=== PATIENT | female | born 1990 ===

== ENCOUNTER 2017-02-22 15:08 | Inpatient (IN) | payer OTHER ==
[2017-02-22] MEDS ORDERED: Sodium Chloride 0.9% 1,000 ML IV ONE (15:28)
[2017-02-22 15:47] LABS: BASO # 0.1 K/uL (0.0-0.2); EOS % 0.2 % (0.0-4.0); HEMATOCRIT 37.6 % (34.0-47.0); LYMPH # 1.2 K/uL (1.0-4.3); LYMPH % 9.4 % (20.0-40.0); MEAN CELL VOLUME 84.6 fL (81.0-99.0); MEAN CORPUSCULAR HEMOGLOBIN 27.8 pg (27.0-31.0); MEAN CORPUSCULAR HGB CONC 32.8 g/dL (33.0-37.0); MEAN PLATELET VOLUME 8.5 fL (7.2-11.7); MONO # 0.7 K/uL (0.0-0.8); PLATELET COUNT 274 K/uL (130-400); RED CELL DISTRIBUTION WIDTH 14.1 % (11.5-14.5); WHITE BLOOD COUNT 12.4 K/uL (4.8-10.8)
[2017-02-22 15:47] LABS: RBC URINE 41 /hpf (0-3); URINE BILIRUBIN NEGATIVE (NEGATIVE); URINE BLOOD 3+ (NEGATIVE); URINE COLOR Yellow (YELLOW); URINE GLUCOSE (UA) NORMAL (Normal); URINE KETONE NEGATIVE (NEGATIVE); URINE LEUKOCYTE ESTERASE 1+ Leu/uL (Negative); URINE PROTEIN 1+ mg/dL (NEGATIVE); URINE UROBILINOGEN NORMAL mg/dL (0.2-1.0); WBC URINE 32 /hpf (0-5)
[2017-02-22 15:54] LABS: CHLORIDE 97 mmol/L (98-107)
[2017-02-22 15:55] LABS: POTASSIUM 3.9 mmol/L (3.6-5.2); SODIUM 135 mmol/L (132-148)
[2017-02-22 15:57] LABS: ALB/GLOB RATIO 1.4 (1.0-2.1); ALKALINE PHOSPHATASE 72 U/L (38-126); ALT/SGPT 33 U/L (9-52); AST/SGOT 13 U/L (14-36); BILIRUBIN,TOTAL 0.7 mg/dL (0.2-1.3); BLOOD UREA NITROGEN 14 mg/dL (7-17); CALCIUM 8.6 mg/dl (8.6-10.4); CARBON DIOXIDE 27 mmol/L (22-30); GLUCOSE,RANDOM 87 mg/dL (65-105); TOTAL PROTEIN 7.9 g/dL (6.3-8.3)
[2017-02-22] MEDS ORDERED: Piperacillin/Tazobact 3.375 gm 100 ML IVPB STA (15:57)
[2017-02-22 16:04] LABS: GFR AFRICAN-AMERICAN > 60
[2017-02-22] MEDS ORDERED: Piperacillin/Tazobact 3.375 gm 100 ML IVPB ONE (16:05)
--- NOTE | 2017-02-22 16:15 | RAD ---
PROCEDURE: Radiographs of the chest and abdomen (obstructive series) HISTORY: Abdominal pain COMPARISON: No prior. TECHNIQUE: AP radiograph of the chest, with upright and supine radiographs of the abdomen. FINDINGS: CHEST: Lungs: The lungs are clear. Cardiovascular: Normal size heart. No pulmonary vascular congestion. Pleura: No pleural fluid. No pneumothorax. Other findings: None. ABDOMEN AND PELVIS: Bowel: There is large amount of stool in the colon. No differential air-fluid levels or bowel dilatation. No evidence of mechanical obstruction. Free air: None. Bones: Unremarkable. Other findings: None. IMPRESSION: Constipation. No evidence of mechanical bowel obstruction. Clear lungs.
[2017-02-22 16:43] LABS: NEUTROPHIL 93 % (50-75); TOTAL CELLS COUNTED 100
[2017-02-22] MEDS ORDERED: Iodixanol 320 MG/ML 200 ML BOTTLE IV ONE (17:12)
--- NOTE | 2017-02-22 18:38 | CT ---
EXAM: CT Abdomen and Pelvis With Intravenous Contrast EXAM DATE/TIME: Exam ordered 02/22/2017 3:56 PM CLINICAL HISTORY: 26 years old, female; Pain; Abdominal pain; Additional info: Lt side abdomen pain TECHNIQUE: Axial computed tomography images of the abdomen and pelvis with intravenous contrast. All CT scans at this facility use one or more dose reduction techniques, viz.: automated exposure control; ma/kV adjustment per patient size (including targeted exams where dose is matched to indication; i.e. head); or iterative reconstruction technique. Coronal and sagittal reformatted images were created and reviewed. CONTRAST: 100 mL of VISI administered intravenously. COMPARISON: No relevant prior studies available. FINDINGS: Lower thorax: No acute findings. ABDOMEN: Liver: Unremarkable. No mass. Gallbladder and bile ducts: Unremarkable. No calcified stones. No ductal dilation. Pancreas: Unremarkable. No mass. No ductal dilation. Spleen: Unremarkable. No splenomegaly. Adrenals: Unremarkable. No mass. Kidneys and ureters: Unremarkable. No solid mass. No hydronephrosis. Stomach and bowel: There is inflammation noted within the pericolonic fat surrounding the colon at the junction of the descending colon and sigmoid colon. No obstruction. No mucosal thickening. Appendix: No findings to suggest acute appendicitis. PELVIS: Bladder: Unremarkable. No mass. Reproductive: The left ovary measures 3.3 x 1.6 by 2.1 cm . The right ovary measures 2.7 x 3.8 by 3 cm.The left ovary is contiguous with the sigmoid colon in the area of pericolonic inflammation. . ABDOMEN and PELVIS: Intraperitoneal space: Unremarkable. No free air. No significant fluid collection. Bones/joints: No acute fracture. No dislocation. Soft tissues: Unremarkable. Vasculature: Mildly prominent margaret-colonic and perienteric vessels are noted. No abdominal aortic aneurysm. Lymph nodes: There are scattered mesenteric lymph nodes. . There are scattered retroperitoneal lymph nodes noted. All have a short axis diameter less than a centimeter. Lymph nodes are also noted in the pelvis along the external iliac chain again with a short axis diameter of less than a centimeter. IMPRESSION: 1. Inflammatory stranding noted within the pericolonic fat anterior to the junction of the descending colon with the sigmoid colon. Prominent perienteric vessels. The findings suggest the possibility of inflammatory bowel disease. There is no evidence of focal fat necrosis/epiploic appendigitis. The adjacent ovary appears normal in configuration and size. Images were attached to this report and are available at [email or web address]
[2017-02-22] MEDS ORDERED: metroNIDAZOLE IV 500 mg/100 ml 500 MG/100 ML BAG IV STA (19:00)
[2017-02-22] MEDS ORDERED: metroNIDAZOLE IV 500 mg/100 ml 500 MG/100 ML BAG ONE (19:13)
--- NOTE | 2017-02-22 19:43 | C.PDOC ---
History Of Present Illness 26 year old female presents to the ED for evaluation of left lower quadrant abdominal pain which began around 2 days ago. Patient describes her symptoms as colicky, dull, aching, and boring in nature. Patient notes that she has been experiencing constipation intermittently since childhood. Patient denies fever, chills, nausea, vomiting, diarrhea, vaginal discharge, or history of inflammatory bowel disease at this time. Time Seen by Provider: 02/22/17 15:21 Chief Complaint (Nursing): Abdominal Pain History Per: Patient History/Exam Limitations: no limitations Onset/Duration Of Symptoms: Days (2) Current Symptoms Are (Timing): Still Present Location Of Pain/Discomfort: LLQ Radiation Of Pain To:: None Quality Of Discomfort: Dull, Aching, "Pain" Associated Symptoms: denies: Fever, Chills, Nausea, Vomiting, Diarrhea Additional History Per: Patient Abnormal Vaginal Bleeding: No Past Medical History Reviewed: Historical Data, Nursing Documentation, Vital Signs Vital Signs: Last Vital Signs Temp 100.1 F H 02/22/17 20:36 Pulse 95 H 02/22/17 20:36 Resp 18 02/22/17 20:36 BP 117/73 02/22/17 20:36 Pulse Ox 99 02/22/17 22:49 - Medical History PMH: No Chronic Diseases Surgical History: No Surg Hx Family History: States: Unknown Family Hx - Social History Hx Alcohol Use: No Hx Substance Use: No Review Of Systems Constitutional: Negative for: Fever, Chills Gastrointestinal: Positive for: Abdominal Pain (left lower quadrant ). Negative for: Nausea, Vomiting, Diarrhea Physical Exam - Physical Exam Appears: Non-toxic, No Acute Distress Skin: Normal Color, Warm, Dry Head: Atraumatic, Normacephalic Eye(s): bilateral: Normal Inspection Oral Mucosa: Moist Neck: Supple Chest: Symmetrical, No Deformity, No Tenderness Cardiovascular: Rhythm Regular, No Murmur Respiratory: Normal Breath Sounds, No Rales, No Rhonchi, No Wheezing Gastrointestinal/Abdominal: Soft, Tenderness (left lower quadrant ), No Guarding , No Rebound Extremity: Normal ROM, Capillary Refill (less than 2 seconds ) Neurological/Psych: Oriented x3, Normal Speech, Normal Cognition Gait: Steady ED Course And Treatment - Laboratory Results Result Diagrams: 02/22/17 15:43 02/22/17 15:43 Urine POC: Negative O2 Sat by Pulse Oximetry: 99 (on RA) Pulse Ox Interpretation: Normal - Radiology CXR: Interpreted by Me CXR Interpretation: Yes: No Acute Disease - Other Rad abd x 2 X-Ray: Interpreted by Me (+FOS) Progress Note: Bloodwork, UA, CT A/P, and Obstructive Series abdomen XR ordered and reviewed. Tylenol PO ,Toradol IVP, Zosyn IVP, and Flagyl IV administered. Reevaluation Time: 19:43 Reassessment Condition: Improved - Physician Consult Information Outcome Of Conversation: 1899:d/w Surg Praneeth, pending eval. 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 diverticulitis h/o constipation but not diarrhea ? underlying UC/Crohn's Colonoscopy when s/s resolved. Disposition Doctor Will See Patient In The: Hospital Counseled Patient/Family Regarding: Studies Performed, Diagnosis - Disposition Disposition: HOSPITALIZED Disposition Time: 19:45 Condition: GOOD - Clinical Impression Clinical Impression: Abdominal pain - Scribe Statement The provider has reviewed the documentation as recorded by the Scribe (Chloe Donald) Provider Attestation: All medical record entries made by the Scribe were at my direction and personally dictated by me. I have reviewed the chart and agree that the record accurately reflects my personal performance of the history, physical exam, medical decision making, and the department course for this patient. I have also personally directed, reviewed, and agree with the discharge instructions and disposition.
--- NOTE | 2017-02-22 19:51 | CP.PCM.HP ---
<Bassem Pandey - Last Filed: 02/23/17 06:05> History of Present Illness - History of Present Illness History of Present Illness: CC: "The left side of my belly hurts" HPI: Patient is a 26 year old Hispan[place] female, with no PMHx, who presents to [facility] ED for left sided abdominal pain. Patient reports symptoms began yesterday morning, and have gradually worsened ever since. She woke up this AM with 10/10 pain and decided to come to the ED when it did not go away. She describes the pain as a constant "burning sensation with sharp stabs" in her LLQ that occasionally radiates into her RLQ. On the severity scale she rates the pain yesterday as 4/10, at worst today 10/10, but now after pain medication in ED . She denies episodes of N/V/D but admits constipation intermittently since she was a child. She states she has had normal appetite the last few days, except this morning when she tried eating egg sandwich, but it made abdominal pain worse and has not eaten since. She normally moves her bowel "every morning " sometimes twice per day. Her last bowel movement was Thursday, and she denies seeing blood on toilet paper, within the stool, or in the bowl. She denies ever having pain occurrence like this before. Patient admits to "partying" last night : She admits drinking heavily - last use yesterday "at least a pint of vodka, shots of fireball whiskey, and unknown amount of henessey," as well as using marijuana "to control the pain." FDLMP: 02/15/17. Patient admits she had normal 5 day period, that was not heavier than normal, that went away on Thursday, however she started lightly bleeding again yesterday. She denies dysuria, urinary frequency, vaginal discharge, or new sexual partners. She further denies fever, chills, nausea, vomiting, diarrhea, chest pain, palpitation, or headache. PMHx: 2 prior pregnancies ending in miscarriage (2009, 2011) PSHx: denies Fam Hx: Mother: benign brain tumor, Dad: unknown SHx: admits occasional recreational alcohol use - last use yesterday "at least a pint of vodka, shots of fireball whiskey, and unknown amount of henessey," admits occasional marijuana use "2 joints yesterday for pain," she denies other illicit drugs; denies tobacco usage; lives in [place] with mother; works at [employer]. Meds: none Allergies: None PMD: None Present on Admission - Present on Admission Any Indicators Present on Admission: No Review of Systems - Constitutional Constitutional: Chills, Fever. absent: Headache - EENT Eyes: absent: Change in Vision Ears: absent: Decreased Hearing - Cardiovascular Cardiovascular: absent: Chest Pain, Dyspnea - Respiratory Respiratory: absent: Dyspnea, Dyspnea on Exertion - Gastrointestinal Gastrointestinal: Abdominal Pain (left side radiating to right), Bloating, Cramping. absent: Nausea, Vomiting - Genitourinary Genitourinary: Dysuria, Urinary Frequency. absent: Urinary Hesitance - Menstruation Menstruation: Menses 1-7 Days - Musculoskeletal Musculoskeletal: absent: Numbness, Tingling - Integumentary Integumentary: absent: Dry Skin, Wounds - Neurological Neurological: absent: Tingling, Weakness - Endocrine Endocrine: absent: Fatigue Past Patient History - Past Social History Smoking Status: Never Smoked - PSYCHIATRIC Hx Substance Use: No Meds Allergies/Adverse Reactions: Allergies Allergy/AdvReac Type Severity Reaction Status Date / Time No Known Allergies Allergy Unverified 02/22/17 15:16 Physical Exam - Constitutional Appears: Non-toxic, No Acute Distress - Head Exam Head Exam: ATRAUMATIC, NORMOCEPHALIC - Eye Exam Eye Exam: EOMI, Normal appearance. absent: Scleral icterus - ENT Exam ENT Exam: Mucous Membranes Moist - Respiratory Exam Respiratory Exam: Clear to Auscultation Bilateral, NORMAL BREATHING PATTERN. absent: Rales, Rhonchi, Wheezes - Cardiovascular Exam Cardiovascular Exam: Tachycardia, +S1, +S2 - GI/Abdominal Exam GI & Abdominal Exam: Guarding (voluntary to LLQ), Normal Bowel Sounds, Soft, Tenderness (worst LLQ, tender suprapubic and RLQ as well). absent: Distended, Mass, Rebound Additional comments: Negative Rovsing/Negative Mcburney/Negative Psoas sign - Back Exam Back exam: absent: CVA tenderness (L), CVA tenderness (R) - Neurological Exam Neurological exam: Alert, Oriented x3 - Psychiatric Exam Psychiatric exam: Normal Affect, Normal Mood - Skin Skin Exam: Normal Color, Warm Results - Vital Signs Recent Vital Signs: Last Vital Signs Temp 102.1 F H 02/22/17 19:19 Pulse 106 H 02/22/17 19:19 Resp 22 02/22/17 19:19 BP 124/75 02/22/17 19:19 Pulse Ox 99 02/22/17 19:45 - Labs Result Diagrams: 02/22/17 15:43 02/22/17 15:43 Labs: Laboratory Results - last 24 hr 02/22/17 02/22/17 02/22/17 15:26 15:43 15:43 WBC 12.4 H RBC 4.44 Hgb 12.3 Hct 37.6 MCV 84.6 MCH 27.8 MCHC 32.8 L RDW 14.1 Plt Count 274 MPV 8.5 Neut % (Auto) 83.4 H Lymph % (Auto) 9.4 L [place] % (Auto) 6.0 Eos % (Auto) 0.2 Baso % (Auto) 1.0 Neut # 10.4 H Lymph # 1.2 [place] # 0.7 Eos # 0.0 Baso # 0.1 Neutrophils % (Manual) 93 H Band Neutrophils % 1 Lymphocytes % (Manual) 4 L Monocytes % (Manual) 2 Platelet Estimate Normal RBC Morphology Normal Sodium 135 Potassium 3.9 Chloride 97 L Carbon Dioxide 27 Anion Gap 15 BUN 14 Creatinine 0.6 L Est GFR ( Amer) > 60 Est GFR (Non-Af Amer) > 60 Random Glucose 87 Calcium 8.6 Total Bilirubin 0.7 AST 13 L ALT 33 Alkaline Phosphatase 72 Total Protein 7.9 Albumin 4.5 Globulin 3.3 Albumin/Globulin Ratio 1.4 Lipase 35 Urine Color Yellow Urine Clarity Hazy Urine pH 8.0 Ur Specific [place] 1.021 Urine Protein 1+ H Urine Glucose (UA) Normal Urine Ketones Negative Urine Blood 3+ H Urine Nitrate Negative Urine Bilirubin Negative Urine Urobilinogen Normal Ur Leukocyte Esterase 1+ H Urine WBC (Auto) 32 H Urine RBC (Auto) 41 H Ur Squamous Epith Cells 12 H Urine HCG, Qual Negative Assessment & Plan - Assessment and Plan (Free Text) Plan: Sepsis Criteria: WBC >12, HR: 106 Source: UTI vs Sigmoid inflammation/diverticulitis - no hypoperfusion, no organ failure - will observe for changes to clinical picture f/u procalcitonin to assess for possible sepsis progression Cipro 400mg IV Q12H Flagyl 500mg IV Q8H Toradol 30 mg IV Q6H for pain D5/NS @ 125cc/hr Diverticulitis/Sigmoid inflammation Admit to med/surg NPO diet Dr. Borjas, GI consult Dr. Fang, Gen surg consult WBC 12.4, Pt febrile CT A/P (02/22/17): Inflammatory stranding noted within pericolonic fat anterior to junction of descending colon with the sigmoid colon. Prominent perienteric vessels. Findings suggest possibility of IBD. No evidence of focal fat necrosis/ epiploic appendigitis. Adjacent ovary - normal in configuration and size. (see full report) Cipro 400mg IV Q12H Flagyl 500mg IV Q8H Toradol 30 mg IV Q6H for pain D5/NS @ 125cc/hr Leukocytosis WBC 12.4 - left shift, 1 band Criteria: WBC > 12, HR: 106 Source: UTI vs Sigmoid inflammation/diverticulitis Cipro 400mg IV Q12H Flagyl 500mg IV q8H - one dose of Zosyn given in ED UTI UA (02/22/17): LE 1+, Nitrate negative, WBC 32, beta HCG negative - not clean catch Sq Epith: 12 - repeat UA in AM Cipro 400mg IV Q12H Constipation Patient reports no BM for two days; long history of constipation Abd Xray (02/22/17): Constipation. No evidence of mechanical bowel obstruction. CT A/P (02/22/17): Inflammatory stranding noted within pericolonic fat anterior to junction of descending colon with the sigmoid colon. Prominent perienteric vessels. Findings suggest possibility of IBD. No evidence of focal fat necrosis/ epiploic appendigitis. Adjacent ovary - normal in configuration and size. Hematuria UA 3+ - patient admits 5 days period ended Thursday but now lightly bleeding again - will follow up UA Prophylaxis SCDs Hold heparin due to interaction with toradol; pt ambulates Protonix 40mg IV Daily Bassem Pandey PGY-[address] Agarwal <Cornelius Agarwal - Last Filed: 02/23/17 06:16> Results - Vital Signs Recent Vital Signs: Last Vital Signs Temp 98.1 F 02/22/17 23:10 Pulse 80 02/22/17 23:10 Resp 18 02/22/17 23:10 BP 103/63 02/22/17 23:10 Pulse Ox 98 02/22/17 23:10 - Labs Result Diagrams: 02/22/17 15:43 02/22/17 15:43 Labs: Laboratory Results - last 24 hr 02/22/17 02/22/17 02/22/17 15:26 15:43 15:43 WBC 12.4 H RBC 4.44 Hgb 12.3 Hct 37.6 MCV 84.6 MCH 27.8 MCHC 32.8 L RDW 14.1 Plt Count 274 MPV 8.5 Neut % (Auto) 83.4 H Lymph % (Auto) 9.4 L [place] % (Auto) 6.0 Eos % (Auto) 0.2 Baso % (Auto) 1.0 Neut # 10.4 H Lymph # 1.2 [place] # 0.7 Eos # 0.0 Baso # 0.1 Neutrophils % (Manual) 93 H Band Neutrophils % 1 Lymphocytes % (Manual) 4 L Monocytes % (Manual) 2 Platelet Estimate Normal RBC Morphology Normal Sodium 135 Potassium 3.9 Chloride 97 L Carbon Dioxide 27 Anion Gap 15 BUN 14 Creatinine 0.6 L Est GFR ( Amer) > 60 Est GFR (Non-Af Amer) > 60 Random Glucose 87 Calcium 8.6 Total Bilirubin 0.7 AST 13 L ALT 33 Alkaline Phosphatase 72 Total Protein 7.9 Albumin 4.5 Globulin 3.3 Albumin/Globulin Ratio 1.4 Lipase 35 Procalcitonin Urine Color Yellow Urine Clarity Hazy Urine pH 8.0 Ur Specific [place] 1.021 Urine Protein 1+ H Urine Glucose (UA) Normal Urine Ketones Negative Urine Blood 3+ H Urine Nitrate Negative Urine Bilirubin Negative Urine Urobilinogen Normal Ur Leukocyte Esterase 1+ H Urine WBC (Auto) 32 H Urine RBC (Auto) 41 H Ur Squamous Epith Cells 12 H Urine HCG, Qual Negative 02/22/17 22:08 WBC RBC Hgb Hct MCV MCH MCHC RDW Plt Count MPV Neut % (Auto) Lymph % (Auto) [place] % (Auto) Eos % (Auto) Baso % (Auto) Neut # Lymph # [place] # Eos # Baso # Neutrophils % (Manual) Band Neutrophils % Lymphocytes % (Manual) Monocytes % (Manual) Platelet Estimate RBC Morphology Sodium Potassium Chloride Carbon Dioxide Anion Gap BUN Creatinine Est GFR ( Amer) Est GFR (Non-Af Amer) Random Glucose Calcium Total Bilirubin AST ALT Alkaline Phosphatase Total Protein Albumin Globulin Albumin/Globulin Ratio Lipase Procalcitonin 0.05 L Urine Color Urine Clarity Urine pH Ur Specific [place] Urine Protein Urine Glucose (UA) Urine Ketones Urine Blood Urine Nitrate Urine Bilirubin Urine Urobilinogen Ur Leukocyte Esterase Urine WBC (Auto) Urine RBC (Auto) Ur Squamous Epith Cells Urine HCG, Qual Assessment & Plan - Date & Time Date: 02/23/17 (I have seen and examined the patient. I agree with the findings and plan of care as documented by Dr. Pandey. Patient with diverticulitis. Also with positive SIRS criteria. Monitor for hemodynamic instability. Check Procalcitonin level. Check blood and urine cultures. Consult to surgery and GI. Given Zosyn and Flagyl in ED. Change to Cipro and Flagyl. Will cover patient's UTI. Repeat UA and urine culture. Monitor for acute changes.) Time: 06:14 Attending/Attestation - Attestation I have personally seen and examined this patient.: Yes I have fully participated in the care of the patient.: Yes I have reviewed all pertinent clinical information: Yes
[2017-02-22] MEDS ORDERED: Dextrose 5%/0.9% NS 1,000 ML IV SCH (21:30)
[2017-02-22] MEDS: Dextrose 5%/0.9% NS 1,000 ML IV SCH (22:00)
[2017-02-22] MEDS: Ciprofloxacin 400mg/200ml D5W 400 MG/200 ML BAG IVPB SCH (22:24)
--- NOTE | 2017-02-23 01:42 | CP.PCM.CON ---
<Hernesto Tirado - Last Filed: 02/23/17 01:21> History of Present Illness - History of Present Illness History of Present Illness: General Surgery Consult Re: sigmoid inflammation, possible diverticulitis HPI: 26F presented to ED for LLQ pain. Pain started thursday AM and is progressively worsening. Thursday had 10/10 pain in AM and decided to come to the ED. Pain feels like "burning sensation with sharp stabs" in her LLQ that spreads to her suprapubic area. Denies N/V, prior F/C, SOB, dysuria, hematuria, diarrhea, constipation. Reports decreased appetite as food today made abd pain worse. Last BM was Thursday and normal. She has never had pain like this before. LMP was 02/15/17 and was her normal 5 day period. Denies family or personal history of IBD. PMH: Miscarriage x 2 PSH: Denies SH: + EtOH and THC use. No Tobacco All: NKDA Meds: Denies Review of Systems - Review of Systems All systems: reviewed and no additional remarkable complaints except (as per HPI ) Past Patient History - Past Medical History & Family History Past Medical History?: Yes - Past Social History Smoking Status: Never Smoked - MUSCULOSKELETAL/RHEUMATOLOGICAL Hx Falls: No - PSYCHIATRIC Hx Substance Use: No - ANESTHESIA Hx Anesthesia: Yes Hx Anesthesia Reactions: No Meds Allergies/Adverse Reactions: Allergies Allergy/AdvReac Type Severity Reaction Status Date / Time No Known Allergies Allergy Unverified 02/22/17 15:16 - Medications Medications: Current Medications Ciprofloxacin (Cipro 400mg/200ml Dsw) 400 mg in 200 mls @ 133 mls/hr IVPB Q12H [facility] Last Admin: 02/22/17 22:24 Dose: 133 mls/hr Metronidazole (Flagyl) 500 mg in 100 mls @ 100 mls/hr IVPB Q8 [facility] Dextrose/Sodium Chloride (Dextrose 5%/0.9% Ns 1000 Ml) 1,000 mls @ 125 mls/hr IV .Q8H [facility] [place] Last Admin: 02/22/17 22:00 Dose: 125 mls/hr Ketorolac Tromethamine (Toradol) 30 mg IVP Q6 PRN PRN Reason: Pain, moderate (4-7) Pantoprazole Sodium (Protonix Inj) 40 mg IVP DAILY [facility] Pneumococcal Polyvalent Vaccine (Pneumovax 23 Vaccine) 0.5 ml IM .ONCE ONE Stop: 02/24/17 10:01 Physical Exam - Constitutional Appears: Non-toxic, No Acute Distress - Head Exam Head Exam: ATRAUMATIC, NORMOCEPHALIC - Eye Exam Eye Exam: EOMI. absent: Scleral icterus - ENT Exam ENT Exam: Mucous Membranes Dry Additional comments: trachea midline - Respiratory Exam Respiratory Exam: NORMAL BREATHING PATTERN. absent: Respiratory Distress - Cardiovascular Exam Cardiovascular Exam: RRR, +S1, +S2 - GI/Abdominal Exam GI & Abdominal Exam: Guarding, Soft, Tenderness (in LLQ and suprapubic area). absent: Distended, Firm, Rigid - Rectal Exam Rectal Exam: Deferred - Extremities Exam Extremities exam: Positive for: normal capillary refill, pedal pulses present. Negative for: pedal edema - Back Exam Back exam: absent: CVA tenderness (L), CVA tenderness (R) - Neurological Exam Neurological exam: Alert, Oriented x3 - Psychiatric Exam Psychiatric exam: Normal Affect, Normal Mood - Skin Skin Exam: Dry, Warm Results - Vital Signs Recent Vital Signs: Last Vital Signs Temp 98.1 F 02/22/17 23:10 Pulse 80 02/22/17 23:10 Resp 18 02/22/17 23:10 BP 103/63 02/22/17 23:10 Pulse Ox 98 02/22/17 23:10 - Labs Result Diagrams: 02/22/17 15:43 02/22/17 15:43 Labs: Laboratory Results - last 24 hr 02/22/17 02/22/17 02/22/17 15:26 15:43 15:43 WBC 12.4 H RBC 4.44 Hgb 12.3 Hct 37.6 MCV 84.6 MCH 27.8 MCHC 32.8 L RDW 14.1 Plt Count 274 MPV 8.5 Neut % (Auto) 83.4 H Lymph % (Auto) 9.4 L [place] % (Auto) 6.0 Eos % (Auto) 0.2 Baso % (Auto) 1.0 Neut # 10.4 H Lymph # 1.2 [place] # 0.7 Eos # 0.0 Baso # 0.1 Neutrophils % (Manual) 93 H Band Neutrophils % 1 Lymphocytes % (Manual) 4 L Monocytes % (Manual) 2 Platelet Estimate Normal RBC Morphology Normal Sodium 135 Potassium 3.9 Chloride 97 L Carbon Dioxide 27 Anion Gap 15 BUN 14 Creatinine 0.6 L Est GFR ( Amer) > 60 Est GFR (Non-Af Amer) > 60 Random Glucose 87 Calcium 8.6 Total Bilirubin 0.7 AST 13 L ALT 33 Alkaline Phosphatase 72 Total Protein 7.9 Albumin 4.5 Globulin 3.3 Albumin/Globulin Ratio 1.4 Lipase 35 Procalcitonin Urine Color Yellow Urine Clarity Hazy Urine pH 8.0 Ur Specific [place] 1.021 Urine Protein 1+ H Urine Glucose (UA) Normal Urine Ketones Negative Urine Blood 3+ H Urine Nitrate Negative Urine Bilirubin Negative Urine Urobilinogen Normal Ur Leukocyte Esterase 1+ H Urine WBC (Auto) 32 H Urine RBC (Auto) 41 H Ur Squamous Epith Cells 12 H Urine HCG, Qual Negative 02/22/17 22:08 WBC RBC Hgb Hct MCV MCH MCHC RDW Plt Count MPV Neut % (Auto) Lymph % (Auto) [place] % (Auto) Eos % (Auto) Baso % (Auto) Neut # Lymph # [place] # Eos # Baso # Neutrophils % (Manual) Band Neutrophils % Lymphocytes % (Manual) Monocytes % (Manual) Platelet Estimate RBC Morphology Sodium Potassium Chloride Carbon Dioxide Anion Gap BUN Creatinine Est GFR ( Amer) Est GFR (Non-Af Amer) Random Glucose Calcium Total Bilirubin AST ALT Alkaline Phosphatase Total Protein Albumin Globulin Albumin/Globulin Ratio Lipase Procalcitonin 0.05 L Urine Color Urine Clarity Urine pH Ur Specific [place] Urine Protein Urine Glucose (UA) Urine Ketones Urine Blood Urine Nitrate Urine Bilirubin Urine Urobilinogen Ur Leukocyte Esterase Urine WBC (Auto) Urine RBC (Auto) Ur Squamous Epith Cells Urine HCG, Qual - Imaging and Cardiology CT scan - abdomen Status: Image reviewed by me, Report reviewed by me Assessment & Plan - Assessment and Plan (Free Text) Assessment: 26F with colitis vs IBD vs possible diverticulitis Plan: NPO IVF Abx Pain control Monitor for BM/flatus Will D/W Dr. Leoncio Tirado PGY4 <Trae Fang - Last Filed: 02/25/17 19:36> Results - Vital Signs Recent Vital Signs: Last Vital Signs Temp 98.8 F 02/25/17 15:00 Pulse 80 02/25/17 15:00 Resp 20 02/25/17 15:00 BP 109/71 02/25/17 15:00 Pulse Ox 98 02/25/17 15:00 - Labs Result Diagrams: 02/25/17 07:49 02/25/17 07:49 Labs: Laboratory Results - last 24 hr 02/25/17 02/25/17 07:49 07:49 WBC 7.1 RBC 4.39 Hgb 12.4 Hct 37.8 MCV 86.2 MCH 28.2 MCHC 32.8 L RDW 14.0 Plt Count 282 MPV 8.7 Neut % (Auto) 73.6 Lymph % (Auto) 17.3 L [place] % (Auto) 6.3 Eos % (Auto) 2.3 Baso % (Auto) 0.5 Neut # 5.2 Lymph # 1.2 [place] # 0.4 Eos # 0.2 Baso # 0.0 Sodium 138 Potassium 4.2 Chloride 101 Carbon Dioxide 27 Anion Gap 14 BUN 12 Creatinine 0.6 L Est GFR ( Amer) > 60 Est GFR (Non-Af Amer) > 60 Random Glucose 83 Calcium 8.5 L Total Bilirubin 0.5 AST 17 ALT 28 Alkaline Phosphatase 62 Total Protein 7.3 Albumin 4.0 Globulin 3.2 Albumin/Globulin Ratio 1.2 Attending/Attestation - Attestation I have personally seen and examined this patient.: Yes I have fully participated in the care of the patient.: Yes I have reviewed all pertinent clinical information: Yes Notes (Text): Pt was seen and examined at bedside Agree with above note and assessment Pt with Enteritis and possible colitis LLQ tenderness Labs and radiology reviewed NPO, IVG C.w IV antibitics Plan d.w pt in detail. Risk and benefit explained in detail.
[2017-02-23] MEDS: metroNIDAZOLE IV 500 mg/100 ml 500 MG/100 ML BAG IVPB SCH ×3 (05:14→21:27)
[2017-02-23] MEDS: Dextrose 5%/0.9% NS 1,000 ML IV SCH ×3 (05:26→21:29)
[2017-02-23 07:53] VITALS: RESP 20
[2017-02-23 08:03] LABS: BASO # 0.1 K/uL (0.0-0.2); BASO % 0.5 % (0.0-2.0); EOS # 0.1 K/uL (0.0-0.7); EOS % 0.5 % (0.0-4.0); HEMATOCRIT 33.7 % (34.0-47.0); LYMPH # 1.3 K/uL (1.0-4.3); LYMPH % 13.8 % (20.0-40.0); MEAN CELL VOLUME 85.6 fL (81.0-99.0); MEAN CORPUSCULAR HEMOGLOBIN 28.2 pg (27.0-31.0); MEAN CORPUSCULAR HGB CONC 32.9 g/dL (33.0-37.0); MEAN PLATELET VOLUME 9.1 fL (7.2-11.7); MONO # 0.6 K/uL (0.0-0.8); MONO % 6.3 % (0.0-10.0); RED CELL DISTRIBUTION WIDTH 13.8 % (11.5-14.5); WHITE BLOOD COUNT 9.3 K/uL (4.8-10.8)
[2017-02-23 08:18] LABS: CHLORIDE 101 mmol/L (98-107); POTASSIUM 3.6 mmol/L (3.6-5.2); SODIUM 134 mmol/L (132-148)
[2017-02-23 08:20] LABS: ALB/GLOB RATIO 1.3 (1.0-2.1); AST/SGOT 19 U/L (14-36); BILIRUBIN,TOTAL 1.1 mg/dL (0.2-1.3); CARBON DIOXIDE 25 mmol/L (22-30); GFR AFRICAN-AMERICAN > 60; TOTAL PROTEIN 6.3 g/dL (6.3-8.3)
[2017-02-23 08:21] LABS: ALKALINE PHOSPHATASE 59 U/L (38-126); ALT/SGPT 26 U/L (9-52); BLOOD UREA NITROGEN 10 mg/dL (7-17); CALCIUM 7.7 mg/dl (8.6-10.4); GLUCOSE,RANDOM 88 mg/dL (65-105); PHOSPHOROUS 2.5 mg/dL (2.5-4.5)
[2017-02-23 08:22] LABS: MAGNESIUM 1.7 mg/dL (1.6-2.3)
--- NOTE | 2017-02-23 09:29 | CP.PCM.CON ---
<Nanette Ramirez - Last Filed: 02/23/17 11:24> History of Present Illness - History of Present Illness History of Present Illness: Gastroenterology Fellow/PGY5 Consult Note 26 year old female with no prior medical history presenting with abdominal pain. Patient states she developed dull left lower abdomen pain on Thursday, pain scale 2-4/10. She notes progression to sharp LLQ pain with walking on Thursday leading to ER presentation, pain scale 10/10. She denies prior similar abdominal pain. Associated loss of appetite, fever, chills, and sweats. Denies nausea, vomiting, hematemesis, diarrhea, constipation, melena, hematochezia, unintentional weight loss, joint pain, back pain, eye redness/pain, mouth ulcers , skin sores, kidney stones, or fatigue. Notes she ate normally on Thursday prior to afternoon pain onset. She admits to heavy social alcoholic intake Thursday with friends. Notes only unusual occurrence of recurrent menstruation at time of severe abdominal pain on Thursday after completion of menstrual cycle on /Thursday. Denies NSAID use. Notes usual daily 1-2 bowel movements without straining described as small pieces adding up to "normal amount". Admits to no fiber intake and averages two glasses of water daily. Diet mainly consists of junk food. No prior EGD or colonoscopy. Family- denies IBD, colitis, diverticulitis Social- weekend heavy alcohol use; rare marijuana use, denies tobacco use Surgery- none Review of Systems - Review of Systems Review of Systems: 12-point review of systems negative except for as above Past Patient History - Past Medical History & Family History Past Medical History?: Yes - Past Social History Smoking Status: Never Smoked - MUSCULOSKELETAL/RHEUMATOLOGICAL Hx Falls: No - PSYCHIATRIC Hx Substance Use: No - ANESTHESIA Hx Anesthesia: Yes Hx Anesthesia Reactions: No Meds Allergies/Adverse Reactions: Allergies Allergy/AdvReac Type Severity Reaction Status Date / Time No Known Allergies Allergy Unverified 02/22/17 15:16 - Medications Medications: Current Medications Ciprofloxacin (Cipro 400mg/200ml Dsw) 400 mg in 200 mls @ 133 mls/hr IVPB Q12H [facility] Last Admin: 02/22/17 22:24 Dose: 133 mls/hr Metronidazole (Flagyl) 500 mg in 100 mls @ 100 mls/hr IVPB Q8 [facility] Last Admin: 02/23/17 05:14 Dose: 100 mls/hr Dextrose/Sodium Chloride (Dextrose 5%/0.9% Ns 1000 Ml) 1,000 mls @ 125 mls/hr IV .Q8H [facility] Last Admin: 02/23/17 05:26 Dose: Not Given Ketorolac Tromethamine (Toradol) 30 mg IVP Q6 PRN PRN Reason: Pain, moderate (4-7) Pantoprazole Sodium (Protonix Inj) 40 mg IVP DAILY [facility] Pneumococcal Polyvalent Vaccine (Pneumovax 23 Vaccine) 0.5 ml IM .ONCE ONE Stop: 02/24/17 10:01 Physical Exam - Constitutional Appears: Non-toxic, No Acute Distress - Head Exam Head Exam: ATRAUMATIC, NORMOCEPHALIC - Eye Exam Eye Exam: EOMI, PERRL. absent: Scleral icterus Pupil Exam: PERRL. absent: Miosis, Mydriatic - ENT Exam ENT Exam: Mucous Membranes Moist, Normal Oropharynx - Neck Exam Neck exam: Positive for: Full Rom, Normal Inspection - Respiratory Exam Respiratory Exam: Clear to Auscultation Bilateral. absent: Rales, Rhonchi, Wheezes - Cardiovascular Exam Cardiovascular Exam: RRR, +S1, +S2. absent: Gallop, Rubs - GI/Abdominal Exam GI & Abdominal Exam: Normal Bowel Sounds, Soft, Tenderness. absent: Distended, Firm, Guarding, Organomegaly, Rebound, Rigid Additional comments: severe LLQ tenderness to palpation - Rectal Exam Rectal Exam: Hemorrhoids. absent: Black Stool, Bloody Stool, Fecal Impaction Additional comments: moderate amount of small, hard mobile pieces of stool in rectal vault - Extremities Exam Extremities exam: Positive for: normal inspection. Negative for: pedal edema - Neurological Exam Neurological exam: Alert - Psychiatric Exam Psychiatric exam: Normal Affect, Normal Mood - Skin Skin Exam: Dry, Intact, Normal Color, Warm Results - Vital Signs Recent Vital Signs: Last Vital Signs Temp 98 F 02/23/17 07:52 Pulse 78 02/23/17 07:52 Resp 20 02/23/17 07:52 BP 100/65 02/23/17 07:52 Pulse Ox 98 02/23/17 07:52 - Labs Result Diagrams: 02/23/17 07:50 02/23/17 07:50 Labs: Laboratory Results - last 24 hr 02/22/17 02/22/17 02/22/17 15:26 15:43 15:43 WBC 12.4 H RBC 4.44 Hgb 12.3 Hct 37.6 MCV 84.6 MCH 27.8 MCHC 32.8 L RDW 14.1 Plt Count 274 MPV 8.5 Neut % (Auto) 83.4 H Lymph % (Auto) 9.4 L [place] % (Auto) 6.0 Eos % (Auto) 0.2 Baso % (Auto) 1.0 Neut # 10.4 H Lymph # 1.2 Dale # 0.7 Eos # 0.0 Baso # 0.1 Neutrophils % (Manual) 93 H Band Neutrophils % 1 Lymphocytes % (Manual) 4 L Monocytes % (Manual) 2 Platelet Estimate Normal RBC Morphology Normal Sodium 135 Potassium 3.9 Chloride 97 L Carbon Dioxide 27 Anion Gap 15 BUN 14 Creatinine 0.6 L Est GFR ( Amer) > 60 Est GFR (Non-Af Amer) > 60 Random Glucose 87 Calcium 8.6 Phosphorus Magnesium Total Bilirubin 0.7 AST 13 L ALT 33 Alkaline Phosphatase 72 Total Protein 7.9 Albumin 4.5 Globulin 3.3 Albumin/Globulin Ratio 1.4 Lipase 35 Procalcitonin Urine Color Yellow Urine Clarity Hazy Urine pH 8.0 Ur Specific [place] 1.021 Urine Protein 1+ H Urine Glucose (UA) Normal Urine Ketones Negative Urine Blood 3+ H Urine Nitrate Negative Urine Bilirubin Negative Urine Urobilinogen Normal Ur Leukocyte Esterase 1+ H Urine WBC (Auto) 32 H Urine RBC (Auto) 41 H Ur Squamous Epith Cells 12 H Urine HCG, Qual Negative 02/22/17 02/23/17 02/23/17 22:08 07:50 07:50 WBC 9.3 RBC 3.93 Hgb 11.1 Hct 33.7 L MCV 85.6 MCH 28.2 MCHC 32.9 L RDW 13.8 Plt Count 228 MPV 9.1 Neut % (Auto) 78.9 H Lymph % (Auto) 13.8 L [place] % (Auto) 6.3 Eos % (Auto) 0.5 Baso % (Auto) 0.5 Neut # 7.3 H Lymph # 1.3 Dale # 0.6 Eos # 0.1 Baso # 0.1 Neutrophils % (Manual) Band Neutrophils % Lymphocytes % (Manual) Monocytes % (Manual) Platelet Estimate RBC Morphology Sodium 134 Potassium 3.6 Chloride 101 Carbon Dioxide 25 Anion Gap 11 BUN 10 Creatinine 0.5 L Est GFR ( Amer) > 60 Est GFR (Non-Af Amer) > 60 Random Glucose 88 Calcium 7.7 L Phosphorus 2.5 Magnesium 1.7 Total Bilirubin 1.1 AST 19 ALT 26 Alkaline Phosphatase 59 Total Protein 6.3 Albumin 3.5 D Globulin 2.8 Albumin/Globulin Ratio 1.3 Lipase Procalcitonin 0.05 L Urine Color Urine Clarity Urine pH Ur Specific [place] Urine Protein Urine Glucose (UA) Urine Ketones Urine Blood Urine Nitrate Urine Bilirubin Urine Urobilinogen Ur Leukocyte Esterase Urine WBC (Auto) Urine RBC (Auto) Ur Squamous Epith Cells Urine HCG, Qual Assessment & Plan - Assessment and Plan (Free Text) Assessment: 26 year old female with no prior medical history presenting with left lower abdominal pain. Active treatment of descending/sigmoid colitis, UTI, and constipation. No prior EGD or colonoscopy. Plan: >possible stercoral colitis >DDx: IBD, diverticulitis >on Cipro/Flagyl >rectal exam- moderate small, hard mobile stool in rectal vault >significant fecal retention >ordered fleet enema and Dulcolax PO x 1 >Miralax BID >clear liquid diet >will require elective colonoscopy to evaluate for underlying mas lesion or other cause for colitis >if no clinical improvement inpatient, will consider inpatient endoscopic evaluation >will follow clinical course <Franco ANNA,[facility] - Last Filed: 02/23/17 14:46> Meds - Medications Medications: Current Medications Ciprofloxacin (Cipro 400mg/200ml Dsw) 400 mg in 200 mls @ 133 mls/hr IVPB Q12H [facility] Last Admin: 02/23/17 10:34 Dose: 133 mls/hr Metronidazole (Flagyl) 500 mg in 100 mls @ 100 mls/hr IVPB Q8 [facility] Last Admin: 02/23/17 13:44 Dose: 100 mls/hr Dextrose/Sodium Chloride (Dextrose 5%/0.9% Ns 1000 Ml) 1,000 mls @ 125 mls/hr IV .Q8H [facility] Last Admin: 02/23/17 13:46 Dose: 125 mls/hr Ketorolac Tromethamine (Toradol) 30 mg IVP Q6 PRN PRN Reason: Pain, moderate (4-7) Pantoprazole Sodium (Protonix Inj) 40 mg IVP DAILY [facility] Last Admin: 02/23/17 10:28 Dose: 40 mg Pneumococcal Polyvalent Vaccine (Pneumovax 23 Vaccine) 0.5 ml IM .ONCE ONE Stop: 02/24/17 10:01 Polyethylene Glycol (Miralax) 17 gm PO BID [facility] Last Admin: 02/23/17 12:13 Dose: 17 gm Results - Vital Signs Recent Vital Signs: Last Vital Signs Temp 98 F 02/23/17 07:52 Pulse 78 02/23/17 07:52 Resp 20 02/23/17 07:52 BP 100/65 02/23/17 07:52 Pulse Ox 98 02/23/17 07:52 - Labs Result Diagrams: 02/23/17 07:50 02/23/17 07:50 Labs: Laboratory Results - last 24 hr 02/22/17 02/22/17 02/22/17 15:26 15:43 15:43 WBC 12.4 H RBC 4.44 Hgb 12.3 Hct 37.6 MCV 84.6 MCH 27.8 MCHC 32.8 L RDW 14.1 Plt Count 274 MPV 8.5 Neut % (Auto) 83.4 H Lymph % (Auto) 9.4 L [place] % (Auto) 6.0 Eos % (Auto) 0.2 Baso % (Auto) 1.0 Neut # 10.4 H Lymph # 1.2 Dale # 0.7 Eos # 0.0 Baso # 0.1 Neutrophils % (Manual) 93 H Band Neutrophils % 1 Lymphocytes % (Manual) 4 L Monocytes % (Manual) 2 Platelet Estimate Normal RBC Morphology Normal PT INR Sodium 135 Potassium 3.9 Chloride 97 L Carbon Dioxide 27 Anion Gap 15 BUN 14 Creatinine 0.6 L Est GFR ( Amer) > 60 Est GFR (Non-Af Amer) > 60 Random Glucose 87 Calcium 8.6 Phosphorus Magnesium Total Bilirubin 0.7 AST 13 L ALT 33 Alkaline Phosphatase 72 Total Protein 7.9 Albumin 4.5 Globulin 3.3 Albumin/Globulin Ratio 1.4 Lipase 35 Procalcitonin Urine Color Yellow Urine Clarity Hazy Urine pH 8.0 Ur Specific [place] 1.021 Urine Protein 1+ H Urine Glucose (UA) Normal Urine Ketones Negative Urine Blood 3+ H Urine Nitrate Negative Urine Bilirubin Negative Urine Urobilinogen Normal Ur Leukocyte Esterase 1+ H Urine WBC (Auto) 32 H Urine RBC (Auto) 41 H Ur Squamous Epith Cells 12 H Urine HCG, Qual Negative 02/22/17 02/23/17 02/23/17 22:08 07:50 07:50 WBC 9.3 RBC 3.93 Hgb 11.1 Hct 33.7 L MCV 85.6 MCH 28.2 MCHC 32.9 L RDW 13.8 Plt Count 228 MPV 9.1 Neut % (Auto) 78.9 H Lymph % (Auto) 13.8 L [place] % (Auto) 6.3 Eos % (Auto) 0.5 Baso % (Auto) 0.5 Neut # 7.3 H Lymph # 1.3 Dale # 0.6 Eos # 0.1 Baso # 0.1 Neutrophils % (Manual) Band Neutrophils % Lymphocytes % (Manual) Monocytes % (Manual) Platelet Estimate RBC Morphology PT INR Sodium 134 Potassium 3.6 Chloride 101 Carbon Dioxide 25 Anion Gap 11 BUN 10 Creatinine 0.5 L Est GFR ( Amer) > 60 Est GFR (Non-Af Amer) > 60 Random Glucose 88 Calcium 7.7 L Phosphorus 2.5 Magnesium 1.7 Total Bilirubin 1.1 AST 19 ALT 26 Alkaline Phosphatase 59 Total Protein 6.3 Albumin 3.5 D Globulin 2.8 Albumin/Globulin Ratio 1.3 Lipase Procalcitonin 0.05 L Urine Color Urine Clarity Urine pH Ur Specific [place] Urine Protein Urine Glucose (UA) Urine Ketones Urine Blood Urine Nitrate Urine Bilirubin Urine Urobilinogen Ur Leukocyte Esterase Urine WBC (Auto) Urine RBC (Auto) Ur Squamous Epith Cells Urine HCG, Qual 02/23/17 02/23/17 11:37 12:09 WBC RBC Hgb Hct MCV MCH MCHC RDW Plt Count MPV Neut % (Auto) Lymph % (Auto) [place] % (Auto) Eos % (Auto) Baso % (Auto) Neut # Lymph # [place] # Eos # Baso # Neutrophils % (Manual) Band Neutrophils % Lymphocytes % (Manual) Monocytes % (Manual) Platelet Estimate RBC Morphology PT 14.5 H INR 1.3 Sodium Potassium Chloride Carbon Dioxide Anion Gap BUN Creatinine Est GFR ( Amer) Est GFR (Non-Af Amer) Random Glucose Calcium Phosphorus Magnesium Total Bilirubin AST ALT Alkaline Phosphatase Total Protein Albumin Globulin Albumin/Globulin Ratio Lipase Procalcitonin Urine Color Yellow Urine Clarity Clear Urine pH 5.0 Ur Specific [place] 1.045 H Urine Protein Negative Urine Glucose (UA) Normal Urine Ketones Negative Urine Blood 3+ H Urine Nitrate Negative Urine Bilirubin Negative Urine Urobilinogen Normal Ur Leukocyte Esterase 1+ H Urine WBC (Auto) 13 H Urine RBC (Auto) 12 H Ur Squamous Epith Cells 3 Urine HCG, Qual Attending/Attestation - Attestation I have personally seen and examined this patient.: Yes I have fully participated in the care of the patient.: Yes I have reviewed all pertinent clinical information: Yes Notes (Text): 02/23/17 14:41 This is a 26 year old female with no prior medical history presenting with left lower abdominal pain with Ct concerning for descending/sigmoid colitis, and, UTI. She also has significant tenderness in LLQ and chronic constipation. Will start stool softeners and continue antibiotics. Clear liquid diet and supportive care. Needs colonoscopy due to retro peritoneal and mesenteric lymphadenopathy once acute episode susbsides to rule out malignancy. 02/23/17 14:46
[2017-02-23] MEDS: Ciprofloxacin 400mg/200ml D5W 400 MG/200 ML BAG IVPB SCH ×2 (10:34→21:29)
[2017-02-23 11:50] LABS: INR 1.3
[2017-02-23] MEDS: POLYETHYLENE GLYCOL 3350 17 GM/Dose PACKET PO SCH ×2 (12:13→17:13)
[2017-02-23 12:19] LABS: RBC URINE 12 /hpf (0-3); URINE BILIRUBIN NEGATIVE (NEGATIVE); URINE BLOOD 3+ (NEGATIVE); URINE COLOR Yellow (YELLOW); URINE GLUCOSE (UA) NORMAL (Normal); URINE KETONE NEGATIVE (NEGATIVE); URINE LEUKOCYTE ESTERASE 1+ Leu/uL (Negative); URINE PROTEIN NEGATIVE (NEGATIVE); URINE UROBILINOGEN NORMAL mg/dL (0.2-1.0); WBC URINE 13 /hpf (0-5)
--- NOTE | 2017-02-23 18:08 | CP.PCM.PN ---
Subjective - Date & Time of Evaluation Date of Evaluation: 02/23/17 Time of Evaluation: 18:05 - Subjective Subjective: Patient has been seen and examined. Reported fever overnight which resolved with tyenol. Still complains of abdominal tenderness. Patient states she has not had a bowel movement since Thursday. Denies any chest pain, SOB, or urinary symptoms. Objective - Vital Signs/Intake and Output Vital Signs (last 24 hours): Temp Pulse Resp BP Pulse Ox 98.4 F 97 H 20 117/76 99 02/23/17 16:00 02/23/17 16:00 02/23/17 16:00 02/23/17 16:00 02/23/17 16:00 Intake and Output: 02/23/17 02/23/17 06:59 18:59 Intake Total 1000 1240 Balance 1000 1240 - Medications Medications: Current Medications Ciprofloxacin (Cipro 400mg/200ml Dsw) 400 mg in 200 mls @ 133 mls/hr IVPB Q12H [facility] Last Admin: 02/23/17 10:34 Dose: 133 mls/hr Metronidazole (Flagyl) 500 mg in 100 mls @ 100 mls/hr IVPB Q8 [facility] Last Admin: 02/23/17 13:44 Dose: 100 mls/hr Dextrose/Sodium Chloride (Dextrose 5%/0.9% Ns 1000 Ml) 1,000 mls @ 125 mls/hr IV .Q8H [facility] Last Admin: 02/23/17 13:46 Dose: 125 mls/hr Ketorolac Tromethamine (Toradol) 30 mg IVP Q6 PRN PRN Reason: Pain, moderate (4-7) Pantoprazole Sodium (Protonix Inj) 40 mg IVP DAILY [facility] Last Admin: 02/23/17 10:28 Dose: 40 mg Pneumococcal Polyvalent Vaccine (Pneumovax 23 Vaccine) 0.5 ml IM .ONCE ONE Stop: 02/24/17 10:01 Polyethylene Glycol (Miralax) 17 gm PO BID [facility] Last Admin: 02/23/17 17:13 Dose: 17 gm - Labs Labs: 02/23/17 07:50 02/23/17 07:50 PT 14.5 SECONDS (9.7-12.2) H 02/23/17 11:37 INR 1.3 02/23/17 11:37 - Constitutional Appears: No Acute Distress - Head Exam Head Exam: ATRAUMATIC, NORMAL INSPECTION, NORMOCEPHALIC - Eye Exam Eye Exam: EOMI - ENT Exam ENT Exam: Mucous Membranes Moist - Neck Exam Neck Exam: absent: Lymphadenopathy - Respiratory Exam Respiratory Exam: Clear to Ausculation Bilateral, NORMAL BREATHING PATTERN. absent: Rales, Rhonchi, Wheezes - Cardiovascular Exam Cardiovascular Exam: RRR, +S1, +S2. 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 Plan: Sepsis Criteria: WBC >12, HR: 106 Source: UTI vs Sigmoid inflammation/diverticulitis - no hypoperfusion, no organ failure - will observe for changes to clinical picture - ProCal 0.05 Cipro 400mg IV Q12H (Day 2) Flagyl 500mg IV q8H (Day 2) Toradol 30 mg IV Q6H for pain D5/NS @ 125cc/hr Diverticulitis/Sigmoid inflammation Admit to med/surg CLD per GI. Adv to FLD in morning if tolerating Dr. Borjas, GI consult Dr. Fang, Gen surg consult WBC 12.4, Pt febrile CT A/P (02/22/17): Inflammatory stranding noted within pericolonic fat anterior to junction of descending colon with the sigmoid colon. Prominent perienteric vessels. Findings suggest possibility of IBD. No evidence of focal fat necrosis/ epiploic appendigitis. Adjacent ovary - normal in configuration and size. (see full report) Cipro 400mg IV Q12H Flagyl 500mg IV Q8H Toradol 30 mg IV Q6H for pain D5/NS @ 125cc/hr Leukocytosis (Resolved) Source: UTI vs Sigmoid inflammation/diverticulitis Cipro 400mg IV Q12H (Day 2) Flagyl 500mg IV q8H (Day 2) - one dose of Zosyn given in ED ProCal 0.05 UTI UA (02/22/17): LE 1+, Nitrate negative, WBC 32, beta HCG negative - not clean catch Sq Epith: 12 -Repeat UA showed Leuk Es Urine Culture Pending Cipro 400mg IV Q12H Constipation Patient reports no BM for two days; long history of constipation Abd Xray (02/22/17): Constipation. No evidence of mechanical bowel obstruction. CT A/P (02/22/17): Inflammatory stranding noted within pericolonic fat anterior to junction of descending colon with the sigmoid colon. Prominent perienteric vessels. Findings suggest possibility of IBD. No evidence of focal fat necrosis/ epiploic appendigitis. Adjacent ovary - normal in configuration and size. Miralax 17gm BID per GI Hematuria UA 3+ - patient admits 5 days period ended Thursday but now lightly bleeding again Repeat UA shows 12+ Blood 3+RBC's Prophylaxis SCDs Hold heparin due to interaction with toradol; pt ambulates Protonix 40mg IV Daily Aron Mauro PGY-1 Discussed with Attending.
[2017-02-24] MEDS: metroNIDAZOLE IV 500 mg/100 ml 500 MG/100 ML BAG IVPB SCH ×3 (06:05→21:37)
[2017-02-24] MEDS: Dextrose 5%/0.9% NS 1,000 ML IV SCH ×3 (06:08→21:40)
--- NOTE | 2017-02-24 07:17 | CP.PCM.PN ---
<Chichi Ace - Last Filed: 02/24/17 10:02> Subjective - Date & Time of Evaluation Date of Evaluation: 02/24/17 Time of Evaluation: 07:14 - Subjective Subjective: PGY-[address] Lewis GI Progress Notes Pt seen and examined. Pt states that the LLQ pain, sharp, on-off, has improves, frm 10 on admission to 4-5 yesterday, to 2/10 today. No N/v/F/C. (+) dysuria yesterday. (+) BM, moderate amount, soft. Refused Fleet enema but took miralax bid Objective - Vital Signs/Intake and Output Vital Signs (last 24 hours): Temp Pulse Resp BP Pulse Ox 98.6 F 87 20 111/67 99 02/23/17 23:13 02/23/17 23:13 02/23/17 23:13 02/23/17 23:13 02/23/17 23:13 Intake and Output: 02/24/17 02/24/17 06:59 18:59 Intake Total 1000 Balance 1000 - Medications Medications: Current Medications Ciprofloxacin (Cipro 400mg/200ml Dsw) 400 mg in 200 mls @ 133 mls/hr IVPB Q12H [facility] Last Admin: 02/23/17 21:29 Dose: 133 mls/hr Metronidazole (Flagyl) 500 mg in 100 mls @ 100 mls/hr IVPB Q8 [facility] Last Admin: 02/24/17 06:05 Dose: 100 mls/hr Dextrose/Sodium Chloride (Dextrose 5%/0.9% Ns 1000 Ml) 1,000 mls @ 125 mls/hr IV .Q8H [facility] Last Admin: 02/24/17 06:08 Dose: Not Given Ketorolac Tromethamine (Toradol) 30 mg IVP Q6 PRN PRN Reason: Pain, moderate (4-7) Pantoprazole Sodium (Protonix Inj) 40 mg IVP DAILY [facility] Last Admin: 02/23/17 10:28 Dose: 40 mg Pneumococcal Polyvalent Vaccine (Pneumovax 23 Vaccine) 0.5 ml IM .ONCE ONE Stop: 02/24/17 10:01 Polyethylene Glycol (Miralax) 17 gm PO BID [facility] Last Admin: 02/23/17 17:13 Dose: 17 gm - Labs Labs: 02/23/17 07:50 11/13/17 07:50 PT 14.5 SECONDS (9.7-12.2) H 02/23/17 11:37 INR 1.3 02/23/17 11:37 - Constitutional Appears: No Acute Distress - Head Exam Head Exam: ATRAUMATIC, NORMAL INSPECTION, NORMOCEPHALIC - Eye Exam Eye Exam: EOMI, Normal appearance, PERRL. absent: Scleral icterus Pupil Exam: NORMAL ACCOMODATION - ENT Exam ENT Exam: Mucous Membranes Moist - Neck Exam Additional comments: supple - Respiratory Exam Respiratory Exam: Clear to Ausculation Bilateral. absent: Rales, Rhonchi, Wheezes - Cardiovascular Exam Cardiovascular Exam: REGULAR RHYTHM, +S1, +S2 - GI/Abdominal Exam GI & Abdominal Exam: Soft, Tenderness (LLQ, mild suprapubic), Normal Bowel Sounds. absent: Firm, Guarding, Rigid - Extremities Exam Extremities Exam: absent: Calf Tenderness - Back Exam Back Exam: absent: CVA tenderness (L), CVA tenderness (R) - Neurological Exam Neurological Exam: Alert, Awake - Psychiatric Exam Psychiatric exam: Normal Affect, Normal Mood - Skin Skin Exam: Dry, Warm Assessment and Plan - Assessment and Plan (Free Text) Plan: 26 year old female with chronic constipation presenting with left lower abdominal pain with Ct concerning for descending/sigmoid colitis, UTI, and significant fecal retention. Active treatment of descending/sigmoid colitis, UTI , and constipation. No prior EGD or colonoscopy. Rectal exam on day 1 - moderate small, hard mobile stool in rectal vault - Acute on Chronic constipation. Significant fecal retention - LLQ abdominal pain - improved, still have 2/10 - suspected descending/sigmoid colitis with retro-peritoneal and mesenteric lymphadenopathy Plan: >ck TSH, free T4 >on Cipro/Flagyl day 2, per primary >Dulcolax PO x 1 and Miralax BID standing >clear liquid diet tolerating well. Will upgrade to full liquid >will require elective colonoscopy due to retro peritoneal and mesenteric lymphadenopathy once acute episode susbsides to rule out malignancy. >if no clinical improvement inpatient, will consider inpatient endoscopic evaluation >if pt improves, may consider sign off tomorrow S/R/D/w Dr. Lewis <Raghavendra Lewis Y - Last Filed: 02/24/17 11:12> Objective - Vital Signs/Intake and Output Vital Signs (last 24 hours): Temp Pulse Resp BP Pulse Ox 98.6 F 87 20 111/67 99 02/23/17 23:13 02/23/17 23:13 02/23/17 23:13 02/23/17 23:13 02/23/17 23:13 Intake and Output: 02/24/17 02/24/17 06:59 18:59 Intake Total 1000 1000 Balance 1000 1000 - Medications Medications: Current Medications Ciprofloxacin (Cipro 400mg/200ml Dsw) 400 mg in 200 mls @ 133 mls/hr IVPB Q12H [facility] Last Admin: 02/24/17 10:19 Dose: 133 mls/hr Metronidazole (Flagyl) 500 mg in 100 mls @ 100 mls/hr IVPB Q8 [facility] Last Admin: 02/24/17 06:05 Dose: 100 mls/hr Dextrose/Sodium Chloride (Dextrose 5%/0.9% Ns 1000 Ml) 1,000 mls @ 125 mls/hr IV .Q8H [facility] Last Admin: 02/24/17 06:08 Dose: Not Given Ketorolac Tromethamine (Toradol) 30 mg IVP Q6 PRN PRN Reason: Pain, moderate (4-7) Ondansetron HCl (Zofran Inj) 4 mg IVP Q8 PRN PRN Reason: Nausea/Vomiting Pantoprazole Sodium (Protonix Inj) 40 mg IVP DAILY [facility] Last Admin: 02/24/17 10:12 Dose: 40 mg Polyethylene Glycol (Miralax) 17 gm PO BID [facility] Last Admin: 02/24/17 10:17 Dose: 17 gm - Labs Labs: 02/23/17 07:50 02/23/17 07:50 PT 14.5 SECONDS (9.7-12.2) H 02/23/17 11:37 INR 1.3 02/23/17 11:37 Attending/Attestation - Attestation I have personally seen and examined this patient.: Yes I have fully participated in the care of the patient.: Yes I have reviewed all pertinent clinical information, including history, physical exam and plan: Yes Notes (Text): 02/24/17 11:09 I have seen and examined patient with GI fellow and medical administrative assistant. No acute events overnight, she is seen ambulating in room, appears comfortable. Her abdominal pain has significantly improved, though she still does report LLQ tenderness. She had one loose bowel movement this morning. Tolerating PO liquids without difficulty. Chronic constipation Abdominal pain - colitis from unclear etiology UTI - Advance to full liquid diet as tolerated - Check TSH - Continue with antibiotic therapy, monitor blood culture results - Patient would benefit from elective outpatient colonoscopy 6-8 weeks following resolution of acute symptoms - Will continue to monitor patient clinical course
[2017-02-24] MEDS ORDERED: Bisacodyl 5mg EC Tab PO STA (07:32)
--- NOTE | 2017-02-24 08:26 | CP.PCM.PN ---
<TiradoHernesto - Last Filed: 02/24/17 08:23> Subjective - Date & Time of Evaluation Date of Evaluation: 02/24/17 Time of Evaluation: 07:10 - Subjective Subjective: General Surgery Pt S&E, NAEO. Pain improving. Tolerated CLD. Had small soft BM, no blood. Ambulating. No F/C, N/V. Objective - Vital Signs/Intake and Output Vital Signs (last 24 hours): Temp Pulse Resp BP Pulse Ox 98.6 F 87 20 111/67 99 02/23/17 23:13 02/23/17 23:13 02/23/17 23:13 02/23/17 23:13 02/23/17 23:13 Intake and Output: 02/24/17 02/24/17 06:59 18:59 Intake Total 1000 1000 Balance 1000 1000 - Medications Medications: Current Medications Ciprofloxacin (Cipro 400mg/200ml Dsw) 400 mg in 200 mls @ 133 mls/hr IVPB Q12H [facility] Last Admin: 02/23/17 21:29 Dose: 133 mls/hr Metronidazole (Flagyl) 500 mg in 100 mls @ 100 mls/hr IVPB Q8 [facility] Last Admin: 02/24/17 06:05 Dose: 100 mls/hr Dextrose/Sodium Chloride (Dextrose 5%/0.9% Ns 1000 Ml) 1,000 mls @ 125 mls/hr IV .Q8H [facility] Last Admin: 02/24/17 06:08 Dose: Not Given Ketorolac Tromethamine (Toradol) 30 mg IVP Q6 PRN PRN Reason: Pain, moderate (4-7) Pantoprazole Sodium (Protonix Inj) 40 mg IVP DAILY [facility] Last Admin: 02/23/17 10:28 Dose: 40 mg Pneumococcal Polyvalent Vaccine (Pneumovax 23 Vaccine) 0.5 ml IM .ONCE ONE Stop: 02/24/17 10:01 Polyethylene Glycol (Miralax) 17 gm PO BID [facility] Last Admin: 02/23/17 17:13 Dose: 17 gm - Labs Labs: 02/23/17 07:50 02/23/17 07:50 PT 14.5 SECONDS (9.7-12.2) H 02/23/17 11:37 INR 1.3 02/23/17 11:37 - Constitutional Appears: Non-toxic, No Acute Distress - Head Exam Head Exam: ATRAUMATIC, NORMOCEPHALIC - Respiratory Exam Respiratory Exam: NORMAL BREATHING PATTERN. absent: Respiratory Distress - GI/Abdominal Exam GI & Abdominal Exam: Soft, Tenderness (in LLQ and suprapubic areas). absent: Distended, Firm, Guarding, Rigid - Neurological Exam Neurological Exam: Alert, Awake - Skin Skin Exam: Dry, Warm Assessment and Plan - Assessment and Plan (Free Text) Assessment: 26F with colitis vs possible diverticulitis vs IBD Plan: ADAT Continue abx Analgesia Will D/W Dr. Leoncio Tirado PGY4 <Trae Fang B - Last Filed: 02/25/17 19:26> Objective - Vital Signs/Intake and Output Vital Signs (last 24 hours): Temp Pulse Resp BP Pulse Ox 98.8 F 80 20 109/71 98 02/25/17 15:00 02/25/17 15:00 02/25/17 15:00 02/25/17 15:00 02/25/17 15:00 Intake and Output: 02/25/17 02/26/17 18:59 06:59 Intake Total 1790 Balance 1790 - Labs Labs: 02/25/17 07:49 02/25/17 07:49 PT 14.5 SECONDS (9.7-12.2) H 02/23/17 11:37 INR 1.3 02/23/17 11:37 Attending/Attestation - Attestation I have personally seen and examined this patient.: Yes I have fully participated in the care of the patient.: Yes I have reviewed all pertinent clinical information, including history, physical exam and plan: Yes Notes (Text): Pt was seen and examined at bedside Agree with above note and assessment Pt with Resolving colitis Mild abdminnal wall tenderness Advance diet to reg diet Serial abdomina exam Pt can be DC home with PO antibiotics f.u as out pt Plan d.w pt in detail. Risk and benefit explained in detail.
[2017-02-24] MEDS ORDERED: Pneumococcal 23-Valent Vaccine IM ONE (10:00)
[2017-02-24] MEDS ORDERED: Influenza Vaccine 60 mcg/0.5 mL SYR (4YR UP) IM ONE (10:00)
[2017-02-24] MEDS: POLYETHYLENE GLYCOL 3350 17 GM/Dose PACKET PO SCH ×2 (10:17→17:25)
[2017-02-24] MEDS: Ciprofloxacin 400mg/200ml D5W 400 MG/200 ML BAG IVPB SCH ×2 (10:19→21:38)
--- NOTE | 2017-02-24 15:42 | CP.PCM.PN ---
<Aron Mauro - Last Filed: 02/24/17 15:39> Subjective - Date & Time of Evaluation Date of Evaluation: 02/24/17 Time of Evaluation: 15:39 - Subjective Subjective: Patient has been seen and examined. No overnight events reported. Abdominal tenderness has improved. She tolerated CLD. Patient has had bowel movement without blood. Denies any chest pain, SOB, or urinary symptoms. Objective - Vital Signs/Intake and Output Vital Signs (last 24 hours): Temp Pulse Resp BP Pulse Ox 98.6 F 87 20 111/67 99 02/23/17 23:13 02/23/17 23:13 02/23/17 23:13 02/23/17 23:13 02/23/17 23:13 Intake and Output: 02/24/17 02/24/17 06:59 18:59 Intake Total 1000 2500 Balance 1000 2500 - Medications Medications: Current Medications Ciprofloxacin (Cipro 400mg/200ml Dsw) 400 mg in 200 mls @ 133 mls/hr [facility]PB [facility]12H [facility] Last Admin: 02/24/17 10:19 Dose: 133 mls/hr Metronidazole (Flagyl) 500 mg in 100 mls @ 100 mls/hr IVPB Q8 [facility] Last Admin: 02/24/17 14:16 Dose: 100 mls/hr Dextrose/Sodium Chloride (Dextrose 5%/0.9% Ns 1000 Ml) 1,000 mls @ 125 mls/hr IV .Q8H [facility] Last Admin: 02/24/17 14:21 Dose: Not Given Ketorolac Tromethamine (Toradol) 30 mg IVP Q6 PRN PRN Reason: Pain, moderate (4-7) Ondansetron HCl (Zofran Inj) 4 mg IVP Q8 PRN PRN Reason: Nausea/Vomiting Pantoprazole Sodium (Protonix Inj) 40 mg IVP DAILY [facility] Last Admin: 02/24/17 10:12 Dose: 40 mg Polyethylene Glycol (Miralax) 17 gm PO BID [facility] Last Admin: 02/24/17 10:17 Dose: 17 gm Sucralfate (Carafate Oral Susp) 1 gm PO QID [facility] - Labs Labs: 02/23/17 07:50 02/23/17 07:50 PT 14.5 SECONDS (9.7-12.2) H 02/23/17 11:37 INR 1.3 11/13/17 11:37 - Additional Findings Additional findings: - Constitutional Appears: No Acute Distress - Head Exam Head Exam: ATRAUMATIC, NORMAL INSPECTION, NORMOCEPHALIC - Eye Exam Eye Exam: EOMI - ENT Exam ENT Exam: Mucous Membranes Moist - Neck Exam Neck Exam: absent: Lymphadenopathy - Respiratory Exam Respiratory Exam: Clear to Ausculation Bilateral, NORMAL BREATHING PATTERN. absent: Rales, Rhonchi, Wheezes - Cardiovascular Exam Cardiovascular Exam: RRR, +S1, +S2. 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 Plan: Sepsis Criteria: WBC >12, HR: 106 Source: UTI vs Sigmoid inflammation/diverticulitis - no hypoperfusion, no organ failure - will observe for changes to clinical picture - ProCal 0.05 Cipro 400mg IV Q12H (Day 2) Flagyl 500mg IV q8H (Day 2) Toradol 30 mg IV Q6H for pain D5/NS @ 125cc/hr Diverticulitis/Sigmoid inflammation Admit to med/surg FLD Dr. Borjas, GI consult -recs appreciated Dr. Fang, Gen surg consult - recs appreciated WBC 12.4, Pt febrile CT A/P (02/22/17): Inflammatory stranding noted within pericolonic fat anterior to junction of descending colon with the sigmoid colon. Prominent perienteric vessels. Findings suggest possibility of IBD. No evidence of focal fat necrosis/ epiploic appendigitis. Adjacent ovary - normal in configuration and size. (see full report) Cipro 400mg IV Q12H Flagyl 500mg IV Q8H Toradol 30 mg IV Q6H for pain D5/NS @ 125cc/hr Leukocytosis (Resolved) Source: UTI vs Sigmoid inflammation/diverticulitis Cipro 400mg IV Q12H (Day 2) Flagyl 500mg IV q8H (Day 2) - one dose of Zosyn given in ED ProCal 0.05 UTI UA (02/22/17): LE 1+, Nitrate negative, WBC 32, beta HCG negative - not clean catch Sq Epith: 12 -Repeat UA showed Leuk Es Urine Culture NEGATIVE for 24 hours Cipro 400mg IV Q12H Constipation (Resolved) Patient reports no BM for two days; long history of constipation Abd Xray (02/22/17): Constipation. No evidence of mechanical bowel obstruction. CT A/P (02/22/17): Inflammatory stranding noted within pericolonic fat anterior to junction of descending colon with the sigmoid colon. Prominent perienteric vessels. Findings suggest possibility of IBD. No evidence of focal fat necrosis/ epiploic appendigitis. Adjacent ovary - normal in configuration and size. Miralax 17gm BID per GI Hematuria UA 3+ - patient admits 5 days period ended Thursday but now lightly bleeding again Repeat UA shows 12+ Blood 3+RBC's Urine Culture NEGATIVE for 24 hours No Gross Hematuria Prophylaxis SCDs Hold heparin due to interaction with toradol; pt ambulates Protonix 40mg IV Daily Aron Mauro PGY-1 Discussed with Attending. <Christiane Child V - Last Filed: 02/25/17 23:05> Objective - Vital Signs/Intake and Output Vital Signs (last 24 hours): Temp Pulse Resp BP Pulse Ox 98.8 F 80 20 109/71 98 02/25/17 15:00 02/25/17 15:00 02/25/17 15:00 02/25/17 15:00 02/25/17 15:00 Intake and Output: 02/25/17 02/25/17 06:59 18:59 Intake Total 1900 1240 Balance 1900 1240 - Medications Medications: Current Medications Ciprofloxacin (Cipro 400mg/200ml Dsw) 400 mg in 200 mls @ 133 mls/hr IVPB Q12H [facility] Last Admin: 02/25/17 10:35 Dose: 133 mls/hr Metronidazole (Flagyl) 500 mg in 100 mls @ 100 mls/hr IVPB Q8 [facility] Last Admin: 02/25/17 14:50 Dose: 100 mls/hr Dextrose/Sodium Chloride (Dextrose 5%/0.9% Ns 1000 Ml) 1,000 mls @ 125 mls/hr IV .Q8H [facility] Last Admin: 02/25/17 13:43 Dose: Not Given Ketorolac Tromethamine (Toradol) 30 mg IVP Q6 PRN PRN Reason: Pain, moderate (4-7) Ondansetron HCl (Zofran Inj) 4 mg IVP Q8 PRN PRN Reason: Nausea/Vomiting Pantoprazole Sodium (Protonix Ec Tab) 40 mg PO DAILY [facility] Polyethylene Glycol (Miralax) 17 gm PO DAILY [facility] Saccharomyces Boulardii (Florastor) 250 mg PO BID [facility] Last Admin: 02/25/17 10:34 Dose: 250 mg Sucralfate (Carafate Oral Susp) 1 gm PO QID [facility] Last Admin: 02/25/17 14:50 Dose: 1 gm - Labs Labs: 02/25/17 07:49 02/25/17 07:49 PT 14.5 SECONDS (9.7-12.2) H 02/23/17 11:37 INR 1.3 02/23/17 11:37 Attending/Attestation - Attestation Notes (Text): Note in error; patient seen with Dr. Chau on 02/24/17. please refer to his attending note.
[2017-02-24 16:48] LABS: BASO % 0.7 % (0.0-2.0); EOS # 0.1 K/uL (0.0-0.7); EOS % 2.1 % (0.0-4.0); HEMATOCRIT 36.1 % (34.0-47.0); LYMPH # 1.6 K/uL (1.0-4.3); LYMPH % 23.8 % (20.0-40.0); MEAN CELL VOLUME 85.6 fL (81.0-99.0); MEAN CORPUSCULAR HEMOGLOBIN 27.3 pg (27.0-31.0); MEAN CORPUSCULAR HGB CONC 31.9 g/dL (33.0-37.0); MEAN PLATELET VOLUME 8.5 fL (7.2-11.7); MONO # 0.5 K/uL (0.0-0.8); MONO % 7.2 % (0.0-10.0); RED CELL DISTRIBUTION WIDTH 13.6 % (11.5-14.5); WHITE BLOOD COUNT 6.5 K/uL (4.8-10.8)
[2017-02-24 17:02] LABS: ALB/GLOB RATIO 1.2 (1.0-2.1); ALKALINE PHOSPHATASE 62 U/L (38-126); ALT/SGPT 32 U/L (9-52); AST/SGOT 16 U/L (14-36); BILIRUBIN,TOTAL 0.6 mg/dL (0.2-1.3); BLOOD UREA NITROGEN 5 mg/dL (7-17); CALCIUM 8.7 mg/dl (8.6-10.4); CARBON DIOXIDE 26 mmol/L (22-30); CHLORIDE 101 mmol/L (98-107); GFR AFRICAN-AMERICAN > 60; GLUCOSE,RANDOM 75 mg/dL (65-105); POTASSIUM 4.3 mmol/L (3.6-5.2); SODIUM 136 mmol/L (132-148); TOTAL PROTEIN 7.4 g/dL (6.3-8.3)
[2017-02-24] MEDS: Sucralfate 1 gm/10 ml Oral Susp UD PO SCH ×2 (17:26→21:43)
[2017-02-25] MEDS: metroNIDAZOLE IV 500 mg/100 ml 500 MG/100 ML BAG IVPB SCH ×2 (06:05→14:50)
[2017-02-25] MEDS: Dextrose 5%/0.9% NS 1,000 ML IV SCH ×2 (06:05→13:43)
[2017-02-25 07:57] LABS: BASO % 0.5 % (0.0-2.0); EOS # 0.2 K/uL (0.0-0.7); EOS % 2.3 % (0.0-4.0); HEMATOCRIT 37.8 % (34.0-47.0); LYMPH # 1.2 K/uL (1.0-4.3); LYMPH % 17.3 % (20.0-40.0); MEAN CELL VOLUME 86.2 fL (81.0-99.0); MEAN CORPUSCULAR HEMOGLOBIN 28.2 pg (27.0-31.0); MEAN CORPUSCULAR HGB CONC 32.8 g/dL (33.0-37.0); MEAN PLATELET VOLUME 8.7 fL (7.2-11.7); MONO # 0.4 K/uL (0.0-0.8); MONO % 6.3 % (0.0-10.0); WHITE BLOOD COUNT 7.1 K/uL (4.8-10.8)
[2017-02-25 08:52] LABS: ALB/GLOB RATIO 1.2 (1.0-2.1); ALKALINE PHOSPHATASE 62 U/L (38-126); ALT/SGPT 28 U/L (9-52); AST/SGOT 17 U/L (14-36); BILIRUBIN,TOTAL 0.5 mg/dL (0.2-1.3); BLOOD UREA NITROGEN 12 mg/dL (7-17); CALCIUM 8.5 mg/dl (8.6-10.4); CARBON DIOXIDE 27 mmol/L (22-30); CHLORIDE 101 mmol/L (98-107); GFR AFRICAN-AMERICAN > 60; GLUCOSE,RANDOM 83 mg/dL (65-105); POTASSIUM 4.2 mmol/L (3.6-5.2); SODIUM 138 mmol/L (132-148); TOTAL PROTEIN 7.3 g/dL (6.3-8.3)
[2017-02-25] MEDS ORDERED: Saccharomyces Boulardi 250 mg Cap PO SCH (10:00)
--- NOTE | 2017-02-25 10:26 | CP.PCM.PN ---
<Chichi Ace - Last Filed: 02/25/17 13:19> Subjective - Date & Time of Evaluation Date of Evaluation: 02/25/17 Time of Evaluation: 10:23 - Subjective Subjective: PGY-[address] Borjas Pt got 1 time dulcolax yesterday. standing miralax BID. 6 loose-formed consistency BM, with decreasing amount as the night goes by. 1 small loose- formed consistency BM this AM. LLQ Abdominal pain is much improved, only triggered by deep palpation on physical exam. Tolerating regular diet. Objective - Vital Signs/Intake and Output Vital Signs (last 24 hours): Temp Pulse Resp BP Pulse Ox 98.4 F 76 20 110/75 99 02/25/17 08:00 02/25/17 08:00 02/25/17 08:00 02/25/17 08:00 02/25/17 08:00 Intake and Output: 02/25/17 02/25/17 06:59 18:59 Intake Total 1900 Balance 1900 - Medications Medications: Current Medications Ciprofloxacin (Cipro 400mg/200ml Dsw) 400 mg in 200 mls @ 133 mls/hr IVPB Q12H [facility] Last Admin: 02/24/17 21:38 Dose: 133 mls/hr Metronidazole (Flagyl) 500 mg in 100 mls @ 100 mls/hr IVPB Q8 [facility] Last Admin: 02/25/17 06:05 Dose: 100 mls/hr Dextrose/Sodium Chloride (Dextrose 5%/0.9% Ns 1000 Ml) 1,000 mls @ 125 mls/hr IV .Q8H [facility] Last Admin: 02/25/17 06:05 Dose: 125 mls/hr Ketorolac Tromethamine (Toradol) 30 mg IVP Q6 PRN PRN Reason: Pain, moderate (4-7) Ondansetron HCl (Zofran Inj) 4 mg IVP Q8 PRN PRN Reason: Nausea/Vomiting Pantoprazole Sodium (Protonix Inj) 40 mg IVP DAILY [facility] Last Admin: 02/24/17 10:12 Dose: 40 mg Polyethylene Glycol (Miralax) 17 gm PO DAILY [facility] Saccharomyces Boulardii (Florastor) 250 mg PO BID [facility] Sucralfate (Carafate Oral Susp) 1 gm PO QID [facility] Last Admin: 02/24/17 21:43 Dose: 1 gm - Labs Labs: 02/25/17 07:49 02/25/17 07:49 PT 14.5 SECONDS (9.7-12.2) H 02/23/17 11:37 INR 1.3 02/23/17 11:37 - Constitutional Appears: No Acute Distress - Head Exam Head Exam: ATRAUMATIC, NORMAL INSPECTION, NORMOCEPHALIC - Eye Exam Eye Exam: EOMI, Normal appearance, PERRL. absent: Scleral icterus Pupil Exam: NORMAL ACCOMODATION - ENT Exam ENT Exam: Mucous Membranes Moist - Neck Exam Additional comments: supple - Respiratory Exam Respiratory Exam: Clear to Ausculation Bilateral. absent: Rales, Rhonchi, Wheezes - Cardiovascular Exam Cardiovascular Exam: REGULAR RHYTHM, +S1, +S2 - GI/Abdominal Exam GI & Abdominal Exam: Soft, Tenderness (Upon palpation on epigastric and LLQ. Tenderness improve as pt flex LE b/l), Normal Bowel Sounds. absent: Distended, Firm, Guarding, Rigid, Organomegaly - Extremities Exam Extremities Exam: absent: Calf Tenderness - Back Exam Back Exam: absent: CVA tenderness (L), CVA tenderness (R) Additional comments: No suprapubic tenderness - Neurological Exam Neurological Exam: Alert, Awake, Normal Gait, Oriented x3 - Psychiatric Exam Psychiatric exam: Normal Affect, Normal Mood - Skin Skin Exam: Dry, Warm Assessment and Plan - Assessment and Plan (Free Text) Plan: 26 year old female with chronic constipation presenting with left lower abdominal pain. Rectal exam on day 1 - moderate small, hard mobile stool in rectal vault. CT A/P was concerning for descending/sigmoid colitis, UTI, and significant fecal retention. Active treatment of descending/sigmoid colitis, UTI , and constipation. No prior EGD or colonoscopy. - Constipation, acute on chronic - Abdominal pain - colitis from unclear etiology. - Descending/sigmoid colitis with retro-peritoneal and mesenteric lymphadenopathy Plan - Tolerating regular diet. - Continue with antibiotic therapy per primary - Monitor blood culture results. Urine culture neg. Blood culture (2 sets) neg x 48 days - Maintain bowel regimen: Miralax once daily - Patient would benefit from elective outpatient colonoscopy 6-8 weeks following resolution of acute symptoms - Increase fiber intake with increase water consumption to 6-8 glasses of water a day S/R/D/w Dr. Borjas <Figueroa Borjas - Last Filed: 02/26/17 09:25> Objective - Vital Signs/Intake and Output Vital Signs (last 24 hours): Temp Pulse Resp BP Pulse Ox 98.8 F 80 20 109/71 98 02/25/17 15:00 02/25/17 15:00 02/25/17 15:00 02/25/17 15:00 02/25/17 15:00 - Labs Labs: 02/25/17 07:49 02/25/17 07:49 PT 14.5 SECONDS (9.7-12.2) H 02/23/17 11:37 INR 1.3 02/23/17 11:37 Attending/Attestation - Attestation I have personally seen and examined this patient.: Yes I have fully participated in the care of the patient.: Yes I have reviewed all pertinent clinical information, including history, physical exam and plan: Yes Notes (Text): 02/25/17 13:00 26 year old female with h/o chronic constipation a/w left sided abdominal pain and signs of left sided colitis on imaging. 1. Left sided colitis 2. Chronic constipation Plan: -recommend antibiotics for 2 weeks -improved abdominal pain, tolerating diet -continue bowel regimen with miralax -recommend colonoscopy in 6-8 weeks to r/o IBD
[2017-02-25] MEDS: Sucralfate 1 gm/10 ml Oral Susp UD PO SCH ×2 (10:34→14:50)
[2017-02-25] MEDS: Ciprofloxacin 400mg/200ml D5W 400 MG/200 ML BAG IVPB SCH (10:35)
--- NOTE | 2017-02-25 15:00 | CP.PCM.DIS ---
<Aron Mauro - Last Filed: 02/25/17 19:20> Provider - Provider Date of Admission: 02/22/17 19:42 Attending physician: Christiane Child DO Consults: GI - Dr. Borjas Surgery - Dr. Fang Time Spent in preparation of Discharge (in minutes): 40 Hospital Course - Lab Results Lab Results: Micro Results 02/22/17 21:25 Blood-Venous Blood Culture - Preliminary NO GROWTH AFTER 48 HOURS 02/22/17 22:05 Blood-Venous Blood Culture - Preliminary NO GROWTH AFTER 48 HOURS 02/23/17 08:40 Urine Urine Culture - Final No Growth (<1,000 CFU/ML) Most Recent Lab Values WBC 7.1 K/uL (4.8-10.8) 02/25/17 07:49 RBC 4.39 Mil/uL (3.80-5.20) 02/25/17 07:49 Hgb 12.4 g/dL (11.0-16.0) 02/25/17 07:49 Hct 37.8 % (34.0-47.0) 02/25/17 07:49 MCV 86.2 fL (81.0-99.0) 02/25/17 07:49 MCH 28.2 pg (27.0-31.0) 02/25/17 07:49 MCHC 32.8 g/dL (33.0-37.0) L 02/25/17 07:49 RDW 14.0 % (11.5-14.5) 02/25/17 07:49 Plt Count 282 K/uL (130-400) 02/25/17 07:49 MPV 8.7 fL (7.2-11.7) 02/25/17 07:49 Neut % (Auto) 73.6 % (50.0-75.0) 02/25/17 07:49 Lymph % (Auto) 17.3 % (20.0-40.0) L 02/25/17 07:49 Hughes % (Auto) 6.3 % (0.0-10.0) 02/25/17 07:49 Eos % (Auto) 2.3 % (0.0-4.0) 02/25/17 07:49 Baso % (Auto) 0.5 % (0.0-2.0) 02/25/17 07:49 Neut # 5.2 K/uL (1.8-7.0) 02/25/17 07:49 Lymph # 1.2 K/uL (1.0-4.3) 02/25/17 07:49 Hughes # 0.4 K/uL (0.0-0.8) 02/25/17 07:49 Eos # 0.2 K/uL (0.0-0.7) 02/25/17 07:49 Baso # 0.0 K/uL (0.0-0.2) 02/25/17 07:49 Neutrophils % (Manual) 93 % (50-75) H 02/22/17 15:43 Band Neutrophils % 1 % (0-2) 02/22/17 15:43 Lymphocytes % (Manual) 4 % (20-40) L 02/22/17 15:43 Monocytes % (Manual) 2 % (0-10) 02/22/17 15:43 Platelet Estimate Normal (NORMAL) 02/22/17 15:43 RBC Morphology Normal 02/22/17 15:43 PT 14.5 SECONDS (9.7-12.2) H 02/23/17 11:37 INR 1.3 02/23/17 11:37 Sodium 138 mmol/L (132-148) 02/25/17 07:49 Potassium 4.2 mmol/L (3.6-5.2) 02/25/17 07:49 Chloride 101 mmol/L (98-107) 02/25/17 07:49 Carbon Dioxide 27 mmol/L (22-30) 02/25/17 07:49 Anion Gap 14 (10-20) 02/25/17 07:49 BUN 12 mg/dL (7-17) 02/25/17 07:49 Creatinine 0.6 mg/dL (0.7-1.2) L 02/25/17 07:49 Est GFR ( Amer) > 60 02/25/17 07:49 Est GFR (Non-Af Amer) > 60 02/25/17 07:49 Random Glucose 83 mg/dL (65-105) 02/25/17 07:49 Calcium 8.5 mg/dl (8.6-10.4) L 02/25/17 07:49 Phosphorus 2.5 mg/dL (2.5-4.5) 02/23/17 07:50 Magnesium 1.7 mg/dL (1.6-2.3) 02/23/17 07:50 Total Bilirubin 0.5 mg/dL (0.2-1.3) 02/25/17 07:49 AST 17 U/L (14-36) 02/25/17 07:49 ALT 28 U/L (9-52) 02/25/17 07:49 Alkaline Phosphatase 62 U/L (38-126) 02/25/17 07:49 Total Protein 7.3 g/dL (6.3-8.3) 02/25/17 07:49 Albumin 4.0 g/dL (3.5-5.0) 02/25/17 07:49 Globulin 3.2 gm/dL (2.2-3.9) 02/25/17 07:49 Albumin/Globulin Ratio 1.2 (1.0-2.1) 02/25/17 07:49 Lipase 35 U/L (23-300) 02/22/17 15:43 Procalcitonin 0.05 NG/ML (0.19-0.49) L 02/22/17 22:08 Free T4 0.44 ng/dL (0.78-2.19) L 02/24/17 11:09 TSH 3rd Generation 2.09 mIU/L (0.46-4.68) 02/24/17 11:09 Urine Color Yellow (YELLOW) 02/23/17 12:09 Urine Clarity Clear (Clear) 02/23/17 12:09 Urine pH 5.0 (5.0-8.0) 02/23/17 12:09 Ur Specific Collyer 1.045 (1.003-1.030) H 02/23/17 12:09 Urine Protein Negative mg/dL (NEGATIVE) 02/23/17 12:09 Urine Glucose (UA) Normal mg/dL (Normal) 02/23/17 12:09 Urine Ketones Negative mg/dL (NEGATIVE) 02/23/17 12:09 Urine Blood 3+ (NEGATIVE) H 02/23/17 12:09 Urine Nitrate Negative (NEGATIVE) 02/23/17 12:09 Urine Bilirubin Negative (NEGATIVE) 02/23/17 12:09 Urine Urobilinogen Normal mg/dL (0.2-1.0) 02/23/17 12:09 Ur Leukocyte Esterase 1+ Lloyd/uL (Negative) H 02/23/17 12:09 Urine WBC (Auto) 13 /hpf (0-5) H 02/23/17 12:09 Urine RBC (Auto) 12 /hpf (0-3) H 02/23/17 12:09 Ur Squamous Epith Cells 3 /hpf (0-5) 02/23/17 12:09 Urine HCG, Qual Negative (NEGATIVE) 02/22/17 15:26 - Hospital Course Hospital Course: This is a 26 year old female with no significant PMHx admitted for evaluation and treatment of abdominal pain. CT Abd/pelvis on Admission read inflammatory stranding noted within pericolonic fat anterior to junction of descending colon with the sigmoid colon. Prominent perienteric vessels. Findings suggest possibility of IBD. No evidence of focal fat necrosis/epiploic appendigitis. UA also showed elevated leuk Es on admission. Patient was made NPO, fluids were started, and she was put on Cipro and Flagyl. GI and surgery were consulted on the case. Blood and Urine cultures came back negative. Patient diet was upgraded until she tolerated regular diet. GI signed off and asked her to go for outpatient colonoscopy in 6-8 weeks. She is stable for discharge by the medicine team. Patient is to also follow up at the [facility] within 1 week and continue her Cipro/Flagyl with PO rout for another 7 days. Patient is agreeable with plan and new medications. Aron Mauro PGY-1 - Date & Time of H&P Date of H&P: 02/25/17 Time of H&P: 15:00 Discharge Exam - Head Exam Head Exam: ATRAUMATIC, NORMAL INSPECTION, NORMOCEPHALIC - Eye Exam Eye Exam: EOMI, Normal appearance - ENT Exam ENT Exam: Mucous Membranes Moist - Respiratory Exam Respiratory Exam: Clear to PA & Lateral. absent: Rales, Rhonchi, Wheezes - Cardiovascular Exam Cardiovascular Exam: RRR, +S1, +S2 - GI/Abdominal Exam GI & Abdominal Exam: Normal Bowel Sounds, Soft, Tenderness (very mild tenderness to palpation. ). absent: Organomegaly - Extremities Exam Extremities exam: normal inspection - Back Exam Back exam: absent: CVA tenderness (L), CVA tenderness (R) - Neurological Exam Neurological exam: Alert, Oriented x3 - Psychiatric Exam Psychiatric exam: Normal Affect, Normal Mood - Skin Skin Exam: Dry, Intact, Normal Color, Warm Discharge Plan - Discharge Medications Prescriptions: RX: Ciprofloxacin [Cipro] 500 mg PO BID #14 tab metroNIDAZOLE [Flagyl] 500 mg PO TID #21 tab - Follow Up Plan Condition: GOOD Disposition: HOME/ ROUTINE Instructions: Ciprofloxacin (By mouth), Metronidazole (By mouth), Irritable Bowel Syndrome (DC), Acute Abdominal Pain (DC), Acute Abdominal Pain (GEN) Additional Instructions: Please follow up with [facility] within 1 week. Please follow up with GI physician in 6-8 weeks for outpatient colonoscopy. You should make the appointment as soon as possible. Please take medications as directed: Ciprofloxacin 500mg Twice a day for 7 days and Flagyl 500mg three times a day for 7 days. Please complete the antibiotic regiment even if all symptoms have resolved. If symptoms return, please return to the emergency department. Please stay safe and be well. Referrals: [facility] at [facility] [Outside] Figueroa Borjas MD [Staff Provider] - <Christiane Child V - Last Filed: 02/25/17 23:17> Provider - Provider Date of Admission: 02/22/17 19:42 Attending physician: Christiane Child, Hospital Course - Lab Results Lab Results: Micro Results 02/22/17 21:25 Blood-Venous Blood Culture - Preliminary NO GROWTH AFTER 3 DAYS 02/22/17 22:05 Blood-Venous Blood Culture - Preliminary NO GROWTH AFTER 3 DAYS 02/23/17 08:40 Urine Urine Culture - Final No Growth (<1,000 CFU/ML) Most Recent Lab Values WBC 7.1 K/uL (4.8-10.8) 02/25/17 07:49 RBC 4.39 Mil/uL (3.80-5.20) 02/25/17 07:49 Hgb 12.4 g/dL (11.0-16.0) 02/25/17 07:49 Hct 37.8 % (34.0-47.0) 02/25/17 07:49 MCV 86.2 fL (81.0-99.0) 02/25/17 07:49 MCH 28.2 pg (27.0-31.0) 02/25/17 07:49 MCHC 32.8 g/dL (33.0-37.0) L 02/25/17 07:49 RDW 14.0 % (11.5-14.5) 02/25/17 07:49 Plt Count 282 K/uL (130-400) 02/25/17 07:49 MPV 8.7 fL (7.2-11.7) 02/25/17 07:49 Neut % (Auto) 73.6 % (50.0-75.0) 02/25/17 07:49 Lymph % (Auto) 17.3 % (20.0-40.0) L 02/25/17 07:49 Hughes % (Auto) 6.3 % (0.0-10.0) 02/25/17 07:49 Eos % (Auto) 2.3 % (0.0-4.0) 02/25/17 07:49 Baso % (Auto) 0.5 % (0.0-2.0) 02/25/17 07:49 Neut # 5.2 K/uL (1.8-7.0) 02/25/17 07:49 Lymph # 1.2 K/uL (1.0-4.3) 02/25/17 07:49 Hughes # 0.4 K/uL (0.0-0.8) 02/25/17 07:49 Eos # 0.2 K/uL (0.0-0.7) 02/25/17 07:49 Baso # 0.0 K/uL (0.0-0.2) 02/25/17 07:49 Neutrophils % (Manual) 93 % (50-75) H 02/22/17 15:43 Band Neutrophils % 1 % (0-2) 02/22/17 15:43 Lymphocytes % (Manual) 4 % (20-40) L 02/22/17 15:43 Monocytes % (Manual) 2 % (0-10) 02/22/17 15:43 Platelet Estimate Normal (NORMAL) 02/22/17 15:43 RBC Morphology Normal 02/22/17 15:43 PT 14.5 SECONDS (9.7-12.2) H 02/23/17 11:37 INR 1.3 02/23/17 11:37 Sodium 138 mmol/L (132-148) 02/25/17 07:49 Potassium 4.2 mmol/L (3.6-5.2) 02/25/17 07:49 Chloride 101 mmol/L (98-107) 02/25/17 07:49 Carbon Dioxide 27 mmol/L (22-30) 02/25/17 07:49 Anion Gap 14 (10-20) 02/25/17 07:49 BUN 12 mg/dL (7-17) 02/25/17 07:49 Creatinine 0.6 mg/dL (0.7-1.2) L 02/25/17 07:49 Est GFR ( Amer) > 60 02/25/17 07:49 Est GFR (Non-Af Amer) > 60 02/25/17 07:49 Random Glucose 83 mg/dL (65-105) 02/25/17 07:49 Calcium 8.5 mg/dl (8.6-10.4) L 02/25/17 07:49 Phosphorus 2.5 mg/dL (2.5-4.5) 02/23/17 07:50 Magnesium 1.7 mg/dL (1.6-2.3) 02/23/17 07:50 Total Bilirubin 0.5 mg/dL (0.2-1.3) 02/25/17 07:49 AST 17 U/L (14-36) 02/25/17 07:49 ALT 28 U/L (9-52) 02/25/17 07:49 Alkaline Phosphatase 62 U/L (38-126) 02/25/17 07:49 Total Protein 7.3 g/dL (6.3-8.3) 02/25/17 07:49 Albumin 4.0 g/dL (3.5-5.0) 02/25/17 07:49 Globulin 3.2 gm/dL (2.2-3.9) 02/25/17 07:49 Albumin/Globulin Ratio 1.2 (1.0-2.1) 02/25/17 07:49 Lipase 35 U/L (23-300) 02/22/17 15:43 Procalcitonin 0.05 NG/ML (0.19-0.49) L 02/22/17 22:08 Free T4 0.44 ng/dL (0.78-2.19) L 02/24/17 11:09 TSH 3rd Generation 2.09 mIU/L (0.46-4.68) 02/24/17 11:09 Urine Color Yellow (YELLOW) 02/23/17 12:09 Urine Clarity Clear (Clear) 02/23/17 12:09 Urine pH 5.0 (5.0-8.0) 02/23/17 12:09 Ur Specific Collyer 1.045 (1.003-1.030) H 02/23/17 12:09 Urine Protein Negative mg/dL (NEGATIVE) 02/23/17 12:09 Urine Glucose (UA) Normal mg/dL (Normal) 02/23/17 12:09 Urine Ketones Negative mg/dL (NEGATIVE) 02/23/17 12:09 Urine Blood 3+ (NEGATIVE) H 02/23/17 12:09 Urine Nitrate Negative (NEGATIVE) 02/23/17 12:09 Urine Bilirubin Negative (NEGATIVE) 02/23/17 12:09 Urine Urobilinogen Normal mg/dL (0.2-1.0) 02/23/17 12:09 Ur Leukocyte Esterase 1+ Lloyd/uL (Negative) H 02/23/17 12:09 Urine WBC (Auto) 13 /hpf (0-5) H 02/23/17 12:09 Urine RBC (Auto) 12 /hpf (0-3) H 02/23/17 12:09 Ur Squamous Epith Cells 3 /hpf (0-5) 02/23/17 12:09 Urine HCG, Qual Negative (NEGATIVE) 02/22/17 15:26 Attending/Attestation - Attestation I have personally seen and examined this patient.: Yes I have fully participated in the care of the patient.: Yes I have reviewed all pertinent clinical information, including history, physical exam and plan: Yes Notes (Text): Patient seen, examined and case discussed with day-time resident. Patient seen this afternoon. Denies headache, denies chest pain, denies palpitations, denies SOB, denies cough, denies abdominal pain, reports had bowel movement, tolerating diet, denies dysuria, denies hematuria. Patient see with mother at bedside. Resident discussed with GI, patient is stable from their standpoint. Discharge order and discharge instructions discussed with patient at bedside. Prescriptions: 1) Flagyl 500mg PO TID (21 tabs/0 refills) for 7 days to complete 10 day course- ->patient advised to not drink alcohol while on this medication; she is aware she will feel sick as a dog with this combination 2) Ciprofloxacin 500mg BID (14 tabs/0 refills) for 7 days to complete 10 day course-->cover for UTI as well Patient recommended to follow-up with the [facility] )-->number provided to the patient and placed in her cell phone. Patient will need GI referral 6-8 weeks post therapy for screening colonoscopy. Will need repeat UA when not on her period to make sure hematuria resolves. Patient is aware if abdominal pain recurs, to go to the ED and be evaluated by a doctor immediately. This is a summary of patient's hospitalization. Please see EMR for further details. Discharge Diagnoses: 1) Sepsis-->resolved * Criteria: WBC >12, HR: 106; Source: UTI vs Sigmoid inflammation/diverticuliti * Cipro 400mg IV Q12H (Day 3) * Flagyl 500mg IV q8H (Day 3) * Toradol 30 mg IV Q6H for pain * D5/NS @ 125cc/hr * Upon discharge: white count normalized, and heart rate normalized 2) Diverticulitis/Sigmoid inflammation-->Stable * tolerating regular diet * Dr. Borjas, GI consult -recs appreciated * Dr. Fang, Gen surg consult - recs appreciated * CT A/P (02/22/17): Inflammatory stranding noted within pericolonic fat anterior to junction of descending colon with the sigmoid colon. Prominent perienteric vessels. Findings suggest possibility of IBD. No evidence of focal fat necrosis/epiploic appendigitis. Adjacent ovary - normal in configuration and size. (see full report) * Upon discharge, patient to complete ten day course of Cipro and Flagyl and will need GI referral for outpatient colonoscopy in 6-8 weeks following resolution symptoms 3)Leukocytosis-->Resolved * Source: UTI vs Sigmoid inflammation/diverticulitis * Upon discharge, patient to complete ten day course of Cipro and Flagyl and will need GI referral for outpatient colonoscopy in 6-8 weeks following resolution symptoms 4) UTI * UA (02/22/17): LE 1+, Nitrate negative, WBC 32, beta HCG negative * Urine culture: no growth * Upon discharge, patient is covered with Cipro for dysuria * Note: patient's menstruation ended on Thursday-Thursday; advised her to repeat UA upon follow-up 5) Constipation-->resolved * had bowel movement * Abd Xray (02/22/17): Constipation. No evidence of mechanical bowel obstruction. * CT A/P (02/22/17): Inflammatory stranding noted within pericolonic fat anterior to junction of descending colon with the sigmoid colon. Prominent perienteric vessels. Findings suggest possibility of IBD. No evidence of focal fat necrosis/epiploic appendigitis. Adjacent ovary - normal in configuration and size. * Miralax 17gm BID per GI 6) Hematuria * UA 3+ * Will need to repeat Urine studies upon follow-up 7) Prophylaxis * SCDs * Protonix 40mg IV Daily
[2017-02-25 15:58] VITALS: BP 109/71; PULSE 80; TEMP 98.8; O2SAT 98
[2017-02-26] MEDS ORDERED: POLYETHYLENE GLYCOL 3350 17 GM/Dose PACKET PO SCH (10:00)
[2017-02-26] MEDS ORDERED: Pantoprazole 40 mg EC Tab PO SCH (10:00)
== END 2017-02-25 18:30 | disposition home or self-care (01) | DRG 901 ==
LOC: C.ER 15:08 → C.9E 19:42 → C.3T 20:12
PROVIDERS: ADMIT Family Medicine; ATTEND Hospitalist
DX: A41.9 Sepsis, unspecified organism (principal); K51.50 Left sided colitis without complications; N39.0 Urinary tract infection, site not specified; K59.09 Other constipation; F12.90 Cannabis use, unspecified, uncomplicated

== ENCOUNTER 2017-04-02 17:29 | Emergency (ER) | payer OTHER ==
[2017-04-02 18:21] LABS: TRANSITIONAL EPITHIAL < 1 /hpf (0-3); URINE BACTERIA RARE (<OCC); URINE BILIRUBIN NEGATIVE (NEGATIVE); URINE BLOOD NEGATIVE (NEGATIVE); URINE COLOR Yellow (YELLOW); URINE GLUCOSE (UA) NORMAL (Normal); URINE KETONE NEGATIVE (NEGATIVE); URINE LEUKOCYTE ESTERASE NEG Leu/uL (Negative); URINE PROTEIN NEGATIVE (NEGATIVE); URINE UROBILINOGEN NORMAL mg/dL (0.2-1.0); WBC URINE 1 /hpf (0-5)
[2017-04-02 18:58] LABS: BASO # 0.1 K/uL (0.0-0.2); BASO % 0.9 % (0.0-2.0); EOS # 0.1 K/uL (0.0-0.7); EOS % 0.5 % (0.0-4.0); LYMPH # 2.1 K/uL (1.0-4.3); LYMPH % 21.5 % (20.0-40.0); MEAN CELL VOLUME 85.4 fL (81.0-99.0); MEAN CORPUSCULAR HEMOGLOBIN 28.5 pg (27.0-31.0); MEAN CORPUSCULAR HGB CONC 33.3 g/dL (33.0-37.0); MEAN PLATELET VOLUME 8.7 fL (7.2-11.7); MONO # 0.7 K/uL (0.0-0.8); MONO % 7.2 % (0.0-10.0); NRBC % 0.1 % (0.0-2.0); RED CELL DISTRIBUTION WIDTH 13.8 % (11.5-14.5); WHITE BLOOD COUNT 9.8 K/uL (4.8-10.8)
[2017-04-02 19:10] LABS: ALB/GLOB RATIO 1.4 (1.0-2.1); ALKALINE PHOSPHATASE 54 U/L (38-126); ALT/SGPT 13 U/L (9-52); AST/SGOT 16 U/L (14-36); BILIRUBIN,TOTAL 0.5 mg/dL (0.2-1.3); BLOOD UREA NITROGEN 11 mg/dL (7-17); CALCIUM 8.6 mg/dl (8.6-10.4); CARBON DIOXIDE 26 mmol/L (22-30); CHLORIDE 99 mmol/L (98-107); GFR AFRICAN-AMERICAN > 60; GLUCOSE,RANDOM 100 mg/dL (65-105); POTASSIUM 3.9 mmol/L (3.6-5.2); SODIUM 134 mmol/L (132-148); TOTAL PROTEIN 7.1 g/dL (6.3-8.3)
--- NOTE | 2017-04-02 20:42 | US ---
EXAM: US Pelvis Complete, Transabdominal CLINICAL HISTORY: 26 years old, female; Pain; Pelvic pain; Patient HX: Urine hcg negative; Additional info: Right pelvic pain TECHNIQUE: Real-time transabdominal pelvic ultrasound (complete) with image documentation. COMPARISON: CT - ABD PELVIS IV CONTRAST ONLY 2017-02-22 17:18 FINDINGS: Uterus/cervix: Uterus measures 7.4 x 3.7 x 4.8 cm in size. No myometrial mass. Endometrium: 0.3 cm in thickness. Right ovary: 3.5 x 2.5 x 3.1 cm in size. No mass. Small follicles. Normal flow. Left ovary: 2.5 x 2.5 x 2.7 cm in size. No mass. Small follicles. Normal flow. Free fluid: No significant free fluid. Bladder: Unremarkable as visualized. IMPRESSION: 1.No acute findings. EXAM: US Pelvis, Transvaginal CLINICAL HISTORY: 26 years old, female; Pain; Pelvic pain; Patient HX: Urine hcg negative; Additional info: Right pelvic pain TECHNIQUE: Real-time transvaginal pelvic ultrasound (complete) with image documentation. Transvaginal imaging was used for better evaluation of the endometrium and adnexa. COMPARISON: CT - ABD PELVIS IV CONTRAST ONLY 2017-02-22 17:18 FINDINGS: Uterus/cervix: Uterus measures 7.4 x 3.7 x 4.8 cm in size. No myometrial mass. Endometrium: 0.3 cm in thickness. Right ovary: 3.5 x 2.5 x 3.1 cm in size. No mass. Small follicles. Normal flow. Left ovary: 2.5 x 2.5 x 2.7 cm in size. No mass. Small follicles. Normal flow. Free fluid: No significant free fluid. Bladder: Empty bladder which cannot be evaluated with this probe. IMPRESSION: 1.No acute findings.
[2017-04-02] MEDS ORDERED: cefTRIAXone (Rocephin) 250 mg Inj IM STA (20:49)
--- NOTE | 2017-04-02 20:54 | C.PDOC ---
Time Seen by Provider: 04/02/17 18:05 Chief Complaint (Nursing): Abdominal Pain History Per: Patient Onset/Duration Of Symptoms: Days (1) Location Of Pain/Discomfort: RLQ, LLQ, Suprapubic Radiation Of Pain To:: None Quality Of Discomfort: Sharp, "Pain" Associated Symptoms: Other (Vaginal discharge) Alleviating Factors: None Additional History Per: Prior Records Past Medical History Reviewed: Historical Data, Nursing Documentation, Vital Signs Vital Signs: Last Vital Signs Temp 97.9 F 04/02/17 17:33 Pulse 93 H 04/02/17 17:33 Resp 20 04/02/17 17:33 BP 131/86 04/02/17 17:33 Pulse Ox 99 04/02/17 17:33 - Medical History Other PMH: Colitis? Surgical History: No Surg Hx Family History: States: Unknown Family Hx - Social History Hx Alcohol Use: Yes Hx Substance Use: No - Immunization History Hx Tetanus Toxoid Vaccination: No Hx Influenza Vaccination: Yes (01/2017) Hx Pneumococcal Vaccination: No Review Of Systems Except As Marked, All Systems Reviewed And Found Negative. Constitutional: Negative for: Fever, Weakness Cardiovascular: Negative for: Chest Pain Respiratory: Negative for: Shortness of Breath Gastrointestinal: Negative for: Vomiting, Diarrhea, Constipation Genitourinary: Positive for: Vaginal Discharge, Pelvic Pain. Negative for: Dysuria Musculoskeletal: Negative for: Neck Pain, Back Pain Skin: Negative for: Rash Neurological: Negative for: Weakness, Numbness Physical Exam - Physical Exam Appears: Non-toxic, No Acute Distress Skin: Normal Color, Warm, Dry, No Rash Head: Atraumatic, Normacephalic Eye(s): bilateral: Normal Inspection, PERRL, EOMI Neck: Normal ROM, Supple Cardiovascular: Rhythm Regular Respiratory: Normal Breath Sounds, No Accessory Muscle Use Gastrointestinal/Abdominal: Soft, Tenderness (RLQ/right pelvic), No Guarding, No Rebound Back: No CVA Tenderness Pelvic: No Vaginal Bleeding, Vaginal Discharge (yellowish), No Cervical Motion Tenderness, Adnexal Tenderness (right), Other (Radha [place] Cheperoned.) Extremity: Normal ROM Neurological/Psych: Oriented x3, Normal Motor, Normal Sensation ED Course And Treatment - Laboratory Results Result Diagrams: 04/02/17 18:55 04/02/17 18:55 Lab Interpretation: No Acute Changes Urine POC: Negative O2 Sat by Pulse Oximetry: 99 Pulse Ox Interpretation: Normal - CT Scan/US Pelvic US Other Rad Studies (CT/US): Read By Radiologist, Radiology Report Reviewed CT/US Interpretation: IMPRESSION: 1. No acute findings. Progress Note: Pt feels much better and wants to go home. States that her pain resolved. Reevaluation Time: 20:56 Reassessment Condition: Improved Progress - Interventions Interventions:: Observation - Medications Administered Intravenous: NSAID - Data Reviewed Data Reviewed: Lab, Diagnostic imaging, Old records - Patient Status Patient status: Mostly improved - Continuity of Care Discussed patient case with:: Patient, ED Nurse - Patient Plan Patient Plan: Discharge, F/U with PCP Disposition Counseled Patient/Family Regarding: Studies Performed, Diagnosis, Need For Followup, Rx Given - Disposition Referrals: [facility] [Outside] Disposition: HOME/ ROUTINE Disposition Time: 20:56 Condition: IMPROVED Additional Instructions: Follow up with your [facility] within 1 week. Return to the ER if you develop fever, vomiting, worsening of symptoms or if you have any other concerns. Prescriptions: Doxycycline Hyclate 100 mg PO BID #28 capsule Instructions: Pelvic Inflammatory Disease (ED) Print Language: NORTHERN IRISH - Clinical Impression Clinical Impression: Right adnexal tenderness, Vaginal discharge, Lower abdominal pain
[2017-04-02 21:05] VITALS: BP 136/83; PULSE 71; RESP 18; TEMP 97.8; O2SAT 100
== END 2017-04-02 21:30 | disposition home or self-care (01) ==
LOC: C.ER 17:29
DX: N89.8 Other specified noninflammatory disorders of vagina (principal); R10.2 Pelvic and perineal pain
CPT/HCPCS: 76830; 80053; 81001; 84703; 85025; 87491; 87591; 96372; 96374; 99284; J0696; J1885

== ENCOUNTER 2017-10-14 10:12 | Emergency (ER) | payer MEDICAID ==
[2017-10-14 10:35] VITALS: BP 118/80; PULSE 95; RESP 20; TEMP 98.5; O2SAT 100
--- NOTE | 2017-10-14 10:47 | C.PDOC ---
History Of Present Illness 27-year-old female, presents to the emergency department with complaints of three day duration of ear pain, body aches and generalized headache. Patient notes initially, she had a fever, which resolved after Tylenol. Patient denies nausea/vomiting, cough, shortness of breath or any other associated symptoms. No other complaints at this time. Time Seen by Provider: 10/14/17 10:25 Chief Complaint (Nursing): Headache History Per: Patient History/Exam Limitations: no limitations Current Symptoms Are (Timing): Still Present Severity: Moderate Past Medical History Reviewed: Historical Data, Nursing Documentation, Vital Signs Vital Signs: Last Vital Signs Temp 98.5 F 10/14/17 10:20 Pulse 95 H 10/14/17 10:20 Resp 20 10/14/17 10:20 BP 118/80 10/14/17 10:20 Pulse Ox 100 10/14/17 11:45 Family History: States: No Known Family Hx - Social History Hx Alcohol Use: No Hx Substance Use: No - Immunization History Hx Tetanus Toxoid Vaccination: No Hx Influenza Vaccination: No Hx Pneumococcal Vaccination: No Review Of Systems Constitutional: Positive for: Fever, Malaise ENT: Positive for: Ear Pain Respiratory: Negative for: Cough, Shortness of Breath Gastrointestinal: Negative for: Nausea, Vomiting Skin: Negative for: Rash Neurological: Negative for: Weakness, Numbness, Headache, Dizziness Physical Exam - Physical Exam Appears: Non-toxic, No Acute Distress Skin: Normal Color, Warm, Dry, No Rash Head: Atraumatic, Normacephalic Eye(s): bilateral: Normal Inspection, PERRL Ear(s): Bilateral: Normal Nose: Normal Oral Mucosa: Moist Lips: Normal Appearing Neck: Normal ROM Cardiovascular: Rhythm Regular, No Murmur Respiratory: Normal Breath Sounds, No Accessory Muscle Use Extremity: Normal ROM, No Deformity, No Swelling Neurological/Psych: Oriented x3, Normal Speech ED Course And Treatment O2 Sat by Pulse Oximetry: 100 (RA) Pulse Ox Interpretation: Normal Medical Decision Making Medical Decision Making: Plan: * Motrin and Tylenol * Reassess and Disposition Disposition Counseled Patient/Family Regarding: Diagnosis, Need For Followup, Rx Given - Disposition Referrals: [facility] [Outside] Disposition: HOME/ ROUTINE Disposition Time: 10:45 Condition: STABLE Prescriptions: Ibuprofen [Motrin] 600 mg PO TID #15 tab Instructions: Viral Syndrome (DC) Forms: [facility] (Mosotho), General Discharge Instructions - POA Present On Arrival: None - Clinical Impression Clinical Impression: Acute viral syndrome - Scribe Statement The provider has reviewed the documentation as recorded by the Scribe (Ej Wood) All medical record entries made by the Scribe were at my direction and personally dictated by me. I have reviewed the chart and agree that the record accurately reflects my personal performance of the history, physical exam, medical decision making, and the department course for this patient. I have also personally directed, reviewed, and agree with the discharge instructions and disposition.
== END 2017-10-14 10:55 | disposition home or self-care (01) ==
LOC: C.ER 10:12
DX: B34.9 Viral infection, unspecified (principal)

== ENCOUNTER 2018-07-07 11:03 | Emergency (ER) | payer MEDICAID ==
[2018-07-07 11:20] VITALS: BMI 28.3
[2018-07-07 11:24] VITALS: BP 136/86; PULSE 89; TEMP 98.4; O2SAT 100
--- NOTE | 2018-07-07 12:26 | RAD ---
Date of service: 07/07/2018 HISTORY: cough COMPARISON: No prior. TECHNIQUE: Chest PA and lateral views FINDINGS: LUNGS: No active pulmonary disease. PLEURA: No significant pleural effusion identified. No pneumothorax apparent. CARDIOVASCULAR: No aortic atherosclerotic calcification present. Normal cardiac size. No pulmonary vascular congestion. OSSEOUS STRUCTURES: No significant abnormalities. VISUALIZED UPPER ABDOMEN: Normal. OTHER FINDINGS: None. IMPRESSION: No active disease.
--- NOTE | 2018-07-07 12:27 | C.PDOC ---
History Of Present Illness 27 year old female presents to the ED complaining of cough, cold, and congestion for the past 5 days. Reports she has pain in the center of her chest only when she coughs. Also complains of subjective fever yesterday. Notes she has been taking OTC cough medicine. Denies any nausea, vomiting, shortness of breath, leg swelling, diarrhea, abdominal pain, back pain, headache, dizziness, or any other symptoms. Denies sick contacts or recent travels. Time Seen by Provider: 07/07/18 11:16 Chief Complaint (Nursing): Cough, Cold, Congestion History Per: Patient History/Exam Limitations: no limitations Onset/Duration Of Symptoms: Days Current Symptoms Are (Timing): Still Present Sick Contacts (Context): None Associated Symptoms: Fever, Cough, Nasal Congestion. denies: Nausea, Vomiting, Diarrhea Past Medical History Reviewed: Historical Data, Nursing Documentation, Vital Signs Vital Signs: Last Vital Signs Temp 98.4 F 07/07/18 11:20 Pulse 89 07/07/18 11:20 Resp 18 07/07/18 11:20 BP 136/86 07/07/18 11:20 Pulse Ox 100 07/07/18 11:20 - Medical History PMH: No Chronic Diseases Surgical History: No Surg Hx Family History: States: No Known Family Hx - Social History Hx Alcohol Use: Yes Hx Substance Use: No - Immunization History Hx Tetanus Toxoid Vaccination: No Hx Influenza Vaccination: No Hx Pneumococcal Vaccination: No Review Of Systems Except As Marked, All Systems Reviewed And Found Negative. Constitutional: Positive for: Fever ENT: Positive for: Nose Congestion Cardiovascular: Negative for: Palpitations, Edema Respiratory: Positive for: Cough. Negative for: Shortness of Breath Gastrointestinal: Negative for: Nausea, Vomiting, Abdominal Pain, Diarrhea Musculoskeletal: Negative for: Neck Pain, Back Pain Neurological: Negative for: Headache, Dizziness Physical Exam - Physical Exam Appears: Non-toxic, No Acute Distress Skin: Warm, Dry, No Rash Head: Normacephalic Eye(s): bilateral: PERRL, EOMI Ear(s): Bilateral: Normal Nose: Normal Oral Mucosa: Moist Tongue: Normal Appearing Lips: Normal Appearing Teeth: Normal Dentition Gingiva: Normal Appearing Throat: No Erythema, No Exudate Neck: Supple Chest: Symmetrical Cardiovascular: Rhythm Regular, No Murmur, Other (Normal S1, S2) Respiratory: No Rales, No Rhonchi, No Wheezing, Other (CTA B/L, speaking full sentences) Gastrointestinal/Abdominal: Soft, No Tenderness, No Guarding, No Rebound Extremity: Bilateral: No Pedal Edema, Normal Color And Temperature, Normal ROM Neurological/Psych: Oriented x3, Normal Speech Gait: Steady ED Course And Treatment ECG: Interpreted By Me, Viewed By Me ECG Rhythm: Sinus Rhythm ECG Interpretation: No Acute Changes Interpretation Of ECG: Normal intervals, no ST/T changes. Rate From EC O2 Sat by Pulse Oximetry: 100 (RA) Pulse Ox Interpretation: Normal Medical Decision Making Medical Decision Making: Plan - CXR - POC Urine Disposition Counseled Patient/Family Regarding: Studies Performed, Diagnosis, Need For Followup - Disposition Referrals: [facility] [Outside] [facility] [Outside] Disposition: HOME/ ROUTINE Disposition Time: 12:34 Condition: STABLE Additional Instructions: MOLLY BRO, thank you for letting us take care of you today. Your provider was Shakira Gibson MD and you were treated for CHEST PAIN. The emergency medical care you received today was directed at your acute symptoms. If you were prescribed any medication, please fill it and take as directed. It may take several days for your symptoms to resolve. Return to the Emergency Department if your symptoms worsen, do not improve, or if you have any other problems. Please contact your doctor or call one of the physicians/clinics you have been referred to that are listed on the Patient Visit Information form that is included in your discharge packet. [facility] along with any medications you are taking to your follow up visit. Our treatment cannot replace ongoing medical care by a primary care provider outside of the emergency department. Thank you for allowing the [facility] team to be part of your care today. Prescriptions: Benzonatate [Tessalon Perles] 100 mg PO TID PRN #20 sgl PRN Reason: Cough Instructions: Upper Respiratory Infection (ED) Forms: [employer] ([place]), General Discharge Instructions - POA Present On Arrival: None - Clinical Impression Clinical Impression: Upper respiratory infection - Scribe Statement The provider has reviewed the documentation as recorded by the Scribe Mya Burton All medical record entries made by the Scribe were at my direction and personally dictated by me. I have reviewed the chart and agree that the record accurately reflects my personal performance of the history, physical exam, medical decision making, and the department course for this patient. I have also personally directed, reviewed, and agree with the discharge instructions and disposition.
[2018-07-07 12:46] VITALS: RESP 20
--- NOTE | 2018-07-11 22:00 | CARD ---
APPROVED REPORT Date of service: 07/07/2018 EKG Measurement Heart [id number] <Conclusion> Normal sinus rhythm Normal ECG
== END 2018-07-07 12:45 | disposition home or self-care (01) ==
LOC: C.ER 11:03
DX: J06.9 Acute upper respiratory infection, unspecified (principal)